=== PATIENT | female | born 1950 | race Caucasian/White ===

== ENCOUNTER 2021-09-06 17:40 | Outpatient (REF) | payer MEDICARE, SELFPAY ==
[2021-09-06 18:59] LABS: Hemoglobin A1C 9.9 % (<5.7)
[2021-09-06 19:25] LABS: ALT 26 U/L (14-59); AST 15 U/L (15-37); Albumin 4.5 g/dL (3.4-5.0); Alkaline Phosphatase 43 U/L (46-116); BUN 17 mg/dL (7-18); Bilirubin, Total 0.6 mg/dL (0.2-1.0); CREATININE 0.9 mg/dL (0.55-1.02); Calcium 9.5 mg/dL (8.5-10.1); Calculated LDL 10 mg/dL (<100); Chloride 103 mmol/L (98-107); Cholesterol 81 mg/dL (<200); Glucose 147 mg/dL (74-106); HDL Cholesterol 31 mg/dL (40-60); Potassium 4.1 mmol/L (3.5-5.1); Sodium 142 mmol/L (136-145); TSH (W/Ref FT4) 0.81 uIU/mL (0.36-3.74); Total Protein 7.2 g/dL (6.4-8.2); Triglyceride 204 mg/dL (<150); Vitamin B12 343 pg/mL (193-986)
== END 2021-09-06 17:41 | disposition home or self-care (01) ==
LOC: NCHCN 17:40
PROVIDERS: Visit Provider Nurse Practitioner Family
DX: I10 Essential (primary) hypertension (principal); E11.9 Type 2 diabetes mellitus without complications; F03.90 Unspecified dementia, unspecified severity, without behavioral disturbance, psychotic disturbance, mood disturbance, and anxiety
CPT/HCPCS: 80053; 80061; 82607; 83036; 83735; 84443

== ENCOUNTER 2021-12-07 18:39 | Outpatient (REF) | payer MEDICARE, SELFPAY ==
[2021-12-07 18:35] LABS: Hemoglobin A1C 7.6 % (<5.7)
== END 2021-12-07 18:40 | disposition home or self-care (01) ==
LOC: NCHCN 18:39
PROVIDERS: PCP Internal Medicine; Visit Provider Nurse Practitioner Family
DX: E11.9 Type 2 diabetes mellitus without complications (principal)
CPT/HCPCS: 83036

== ENCOUNTER 2022-02-20 07:59 | Outpatient (REF) | payer MEDICARE, SELFPAY ==
[2022-02-20 16:28] LABS: Hemoglobin A1C 7.5 % (<5.7)
== END 2022-02-20 08:00 ==
LOC: NCHCN 07:59
PROVIDERS: PCP Internal Medicine; Visit Provider Nurse Practitioner Family
DX: E11.9 Type 2 diabetes mellitus without complications (principal)
CPT/HCPCS: 83036

== ENCOUNTER 2022-06-16 16:12 | Outpatient (REF) | payer MEDICARE, SELFPAY ==
[2022-06-16 14:12] LABS: Hemoglobin A1C 8.7 % (<5.7)
== END 2022-06-16 16:13 | disposition home or self-care (01) ==
LOC: NCHCN 16:12
PROVIDERS: PCP Nurse Practitioner Family; Visit Provider Nurse Practitioner Family
DX: E11.9 Type 2 diabetes mellitus without complications (principal)
CPT/HCPCS: 83036

== ENCOUNTER 2022-06-20 01:44 | Outpatient (CLI) | payer MEDICARE, SELFPAY ==
--- NOTE | 2022-06-20 12:00 | DI.MAMMO_ITS ---
Exam(s) MAMMO SCREENING EXAM: MAMMO SCREENING CLINICAL HISTORY: SCREENING, Z12.31 TECHNIQUE: Bilateral full field digital CC and MLO mammographic images were obtained with 3D tomosyn thesis and utilizing computer aided detection (CAD). COMPARISON: None. FINDINGS: Masses/Architectural Distortion: There is a 4 mm well-circumscribed nodule in the posterior central a nd lower right breast. It lies near the chest wall. There is an ovoid density in the retroareolar r egion of the right breast which appears to be associated with a duct. Microcalcifications: No suspicious pleomorphic-type are seen. Skin Thickening/Nipple Retraction: None. IMPRESSION: 1. 4 mm nodule in the posterior right breast. Spot compression view is recommended for further evalu ation. Ultrasound may be indicated at that time. 2. Ovoid density in the retroareolar region of the right breast which appears to be associated with a duct. Spot compression view and a right breast ultrasound are requested for further evaluation. BI-RADS Category 0 - Assessment Incomplete: Need additional imaging evaluation Breast Density - Category B - Scattered areas of fibroglandular density Breast density category C or D implies that the patient has dense breast tissue. Dense breast tissue is very common and is not abnormal but dense breast tissue can make it harder to find cancer on a ma mmogram. Also, dense breast tissue may increase their breast cancer risk. This information about the result of the mammogram report was provided to the patient to raise their awareness. Use this report when you speak with the patient about their risks for breast cancer, which includes their family hist ory. At that time, you may recommend for more screening tests (Ultrasound or MRI) as they might be us eful based on their risk. A negative radiographic report should not delay biopsy if a dominant or clinically suspicious mass is present. Up to ten percent of cancers are not identified on mammography. A negative report may reinforce clinical impression. Adenosis and dense breasts may obscure an underlying neoplasm. False positive reports average 6 to 10%. Patient will receive a letter notifying them of these results.
== END 2022-06-20 02:04 ==
LOC: DI 01:47
PROVIDERS: PCP Nurse Practitioner Family; Visit Provider Nurse Practitioner Family
DX: Z12.31 Encounter for screening mammogram for malignant neoplasm of breast (principal)
CPT/HCPCS: 77063; 77067

== ENCOUNTER 2022-07-18 02:19 | Outpatient (CLI) | payer MEDICARE, SELFPAY ==
--- NOTE | 2022-07-18 10:59 | DI.US_ITS ---
Exam(s) MG MAMMO SCREEN CALL BACK UNI US BREAST RT COMPLETE EXAM: MAMMO SCREEN CALL BACK UNI-RIGHT AND COMPLETE RIGHT BREAST ULTRASOUND CLINICAL HISTORY: OVOID DENSITY RIGHT BREAST, ABNL MAMMO R92.8. TECHNIQUE: Unilateral spot mammographic images obtained with 3D tomosynthesisand utilizing computer aided detection (CAD). . Complete RIGHT breast Ultrasound was also performed, including all 4 quadrants, the retroareolar ameya on, and the ipsilateral axilla. COMPARISON: Prior mammograms were reviewed. This additional imaging was performed due to findings described on the recent screening mammogram of 06/20/2022. Her prior mammograms from the [facility] a have not yet been acquired for comparison. These were apparently performed over a decade ago... FINDINGS: DIAGNOSTIC MAMMOGRAM: Additional mammographic views performed todaydo not dissipate the findings.Proceeded with ultrasound. .. COMPLETE RIGHT BREAST ULTRASOUND: Ultrasound performed today reveals 2 relatively similar appearing central findings at the 6 o'clock a nd 9 o'clock positions. The 6 o'clock finding corresponds to the finding on the mammogram. It is cy stic and measures approximately 12 x 5 mm. No solid internal components. Careful real-time imaging reveals these to probably be ductal, particularly the 9 o'clock finding. There are no solid component s therein to suggest the presence of a papilloma. Scanning of the ipsilateral axilla reveals no significant adenopathy. IMPRESSION: 1. Two cystic findings as described above. The purely cystic finding at the 6 o'clock position earnest esponds to the nodule described on the mammogram. The finding at the 9 o'clock position is probably a dilated duct. No papilloma noted therein. Appropriate follow-up as discussed by myself with the patient today is repeat right breast imaging in 6 months, to include repeat right mammogram and ultrasound. The patient was informed of these findings and recommendations by myself prior to leaving the departm ent today. BI-RADS Category 3 - 6 month - Probably Benign Finding: Recommend follow-up mammography in 6 months Breast Density - Category B - Scattered areas of fibroglandular density Breast density Category C or D implies that the patient has dense breast tissue. Dense breast tissue can make it harder to find cancer on a mammogram. Dense breast tissue is also associated with an incr eased risk of breast cancer. This information about the result of the mammogram report was provided to the patient to raise their awareness. Use this report when you speak with the patient about their risks for breast cancer, which includes their family history. At that time, you may recommend additional screening tests (Ultrasoun d or MRI) as these tests may add significant information. A negative radiographic report should not delay biopsy if a dominant or clinically suspicious mass is present. Up to ten percent of cancers are not identified on mammography. A negative report may reinforce clinical impression. Adenosis and dense breasts may obscure an underlying neoplasm. False positive reports average 6 to 10%. Patient will receive a letter notifying them of these results.
== END 2022-07-18 02:39 ==
LOC: DI 02:20
PROVIDERS: PCP Nurse Practitioner Family; Visit Provider Nurse Practitioner Family
DX: Z12.31 Encounter for screening mammogram for malignant neoplasm of breast (principal); N60.01 Solitary cyst of right breast; R92.8 Other abnormal and inconclusive findings on diagnostic imaging of breast
CPT/HCPCS: 76642; 77063; 77067

== ENCOUNTER 2022-09-15 11:06 | Outpatient (REF) | payer MEDICARE, SELFPAY ==
--- OUTSIDE RECORDS SUMMARY | 2022-09-15 11:07 | XMS_ITS | Continuity of Care Document ---
Author Name Unknown Organization [facility] Address [address] [place] [id number] Phone Care Team Providers Care Assorter Laundry Name Role Phone Pitcher Dami THRASHER Unavailable Unavailable Allergies, Adverse Reactions, Alerts Substance Reaction Status Criticality Penicillins Active No Information Medications Medication Instructions Dosage Effective Dates (start - stop) Status Comments ASPIRIN EC 81MG TABLET DR 1 TAB BY MOUTH EVERY DAY - Active MELOXICAM 7.5MG TABLET 1 TAB BY MOUTH EVERY DAY 7.5 MG - Active glipizide ER 10 mg tablet, extended release 24 hr take 2 tablet by oral route every day with breakfast 20 MG - Active bubble pack Trulicity 0.75 mg/0.5 mL subcutaneous pen injector inject (0.75MG) by subcutaneous route every week 0.75 MG - Active amlodipine 2.5 mg tablet Take one tablet by oral route every day in the morning - Active atorvastatin 20 mg tablet take 1 tablet by oral route every day in the morning - Active lisinopril 10 mg tablet Take one tablet by oral route every day in the morning. - Active metformin ER 500 mg tablet,extended release 24hr take 2 tablet by oral route every day in the morning - Active donepezil 10 mg tablet take 1 tablet by oral route every day in the evening 10 MG - Active bubble pack, please cancel previous script. Jardiance 25 mg tablet take 1 tablet by oral route every day in the morning 25 MG - Active bubble pack Procedures Procedure Date Collecton Capillary Blood Spec 21 GLYCOSYLATED HEMOGLOBIN TEST Offic/outpt E&m Estab Low-mod 1 Offic/outpt E&m Estab Low-mod 1 Collecton Capillary Blood Spec 21 GLYCOSYLATED HEMOGLOBIN TEST OFFICE/OUTPATIENT VISIT, EST Collecton Capillary Blood Spec 21 GLYCOSYLATED HEMOGLOBIN TEST Collecton Capillary Blood Spec 20 GLYCOSYLATED HEMOGLOBIN TEST CCIIV4 VACC ABX FREE IM Offic/outpt E&m Estab Low-mod 0 Admin influenza virus vac Collecton Capillary Blood Spec 20 GLYCOSYLATED HEMOGLOBIN TEST OFFICE/OUTPATIENT VISIT, EST OFFICE/OUTPATIENT VISIT, EST Telemed OFFICE/OUTPATIENT VISIT, EST 992 13 Offic/outpt E&m Estab Low-mod 0 Offic/outpt E&m Estab Low-mod 0 Collecton Capillary Blood Spec 20 GLYCOSYLATED HEMOGLOBIN TEST Offic/outpt E&m Estab Low-mod 0 OFFICE/OUTPATIENT VISIT, EST Offic/outpt E&m Estab Low-mod 9 Offic/outpt E&m Estab Low-mod 9 Routine Venipuncture GLYCOSYLATED HEMOGLOBIN TEST Transferase; Alanine Amino Transferase; Aspartate Amino Calcium; Tot Complete Cbc, Automated Creatinine; Bld Electrolyte Panel Glu; Sj Syphilis Thyroid Stim Hormone VITAMIN B-12 OFFICE/OUTPATIENT VISIT, EST Collecton Capillary Blood Spec 19 OFFICE/OUTPATIENT VISIT, EST Damir-13-2019 Offic/outpt E&m New Mod-hi 45 9 Advance Directives Directive Yes / No Effective Date File Name No Information Encounters Encounter Description Practice Location Reason(s) For Visit Diagnoses Date Provider Providers Copied on Encounter [facility] , [address] [place] [address], [address] [place] [address], tel:[phone] [facility] No Information 3 Pitcher Dami. [address] [place] [address], [facility], . tel:[phone], [address] [place] [address], tel:[phone] [facility] No Information 2 Pitcher Dami. [address] [place] [address], [facility], [place]. tel:[phone], [address] [place] [address], tel:[phone] [facility] No Information 2 Pitcher Dami. [address] [place] [address], [facility], [place]. tel:[phone], [id number], tel:[phone] [facility] No Information 2 Nurse Office. [address] [place] [address], [facility], . tel:[phone], [id number], tel:[phone] [facility] No Information 2 Nurse Office. [address] [place] [address], [facility], . tel:[phone], [id number], tel:[phone] [facility] No Information 2 Shannon Houston [address] [place] [address], [id number], . tel:[phone], [address] [place] [address], tel:[phone] [facility] No Information 1 Pitcher Dami. [address] [place] [address], [facility], . tel:[phone], [address] [place] [address], tel:[phone] [facility] No Information 1 Nurse Office. [address] [place] [address], [facility], . tel:[phone] Offic/outpt E&m [address], [address] [place] [address], tel:[phone] [facility] diabetes (chief complaint)com ments (chief complaint)hyp ertension (chief complaint) Type 2 diabetes mellitus without complication, without long-term current use of insulinEssent ial hypertensionM chaim loss 1 Pitchcornell Lomax. [address] [place] [address], [facility], [place]. tel:[phone] Referring Provider: Dami Antunez, [address] [place] [address], [facility]. tel:[phone], [address] [place] [address], tel:[phone] [facility] No Information 1 Pitchcornell Lomax. [address] [place] [address], [facility], [place]. tel:[phone] Offic/outpt E&m [facility] , [address] [place] [address], [address] [place] [address], tel:[phone] [facility] diabetes (chief complaint)Com ments (chief complaint)Kne e pain (chief complaint) Type 2 diabetes mellitus without complication, without long-term current use of insulinRight knee pain, unspecified chronicity 1 Harmony Lomax. [address] [place] [address], [facility], [place]. tel:[phone] Referring Provider: Dami Antunez, [address] [place] [address], [place], [place], [facility]. tel:[phone] [facility] , [address] [place] [address], [address] [place] [address], tel:[phone] [facility] No Information 1 Carson Machado. [address] [place] [address], [address], [place]. tel:[phone] OFFICE/OUTPA TIENT VISIT, [address], [address] [place] [address], [place] tel:[phone] [facility] hypertension (chief complaint)dimitri betes (chief complaint)Com ments (chief complaint) Essential hypertensionT ype 2 diabetes mellitus without complication, without long-term current use of insulinMemory loss 1 Harmony Lomax. [address] [place] [address], [facility], [place]. tel:[phone] Referring Provider: Dami Antunez, [address] [place] [address], [facility]. tel:[phone] Offic/outpt E&m Estab Low-mod [facility] , [address] [place] [address], [address] [place] [address], [place] tel:[phone] [facility] hypertension (chief complaint)dimitri betes (chief complaint)com ments (chief complaint) Type 2 diabetes mellitus without complication, without long-term current use of insulinEssent ial hypertensionM chaim loss 0 Pitchcornell Lomax. [address] [place] [address], [facility], [place]. tel:[phone] Referring Provider: Dami Antunez, [address] [place] [address], [facility]. tel:[phone] OFFICE/OUTPA TIENT VISIT, [facility] , [address] [place] [address], [id number], [place] tel:[phone] [facility] diabetes (chief complaint)hyp ertension (chief complaint)Ear discomfort (chief complaint) Essential hypertensionT ype 2 diabetes mellitus without complication, without long-term current use of insulin 0 Pitcher Dami. [address] [place] [address], [facility], [place]. tel:[phone] Referring Provider: Dami Antunez, [address] [place] [address], [facility]. tel:[phone] OFFICE/OUTPA TIENT VISIT, [facility] , [address] [place] [address], [address] [place] [address], [place] tel:[phone] [facility] diabetes (chief complaint)Vag inal discharge/itc durga (chief complaint) Type 2 diabetes mellitus without complication, without long-term current use of insulinEssent ial hypertension 0 Pitcher Dami. [address] [place] [address], [facility], [place]. tel:[phone] Referring Provider: Dami Antunez, [address] [place] [address], [facility]. tel:[phone] [facility] , [address] [place] [address], [id number], [place] tel:[phone] [facility] Sore throat (chief complaint) Pharyngitis, unspecified etiology 0 Dejuan Malone. [address] [place] [address], [facility], [place]. tel:[phone] Referring Provider: Randi Ortega , [address] [place] [address], [id number]. tel:[phone] Offic/outpt E&m Estab Low-mod [facility] , [address] [place] [address], [id number], [place] tel:[phone] [facility] Ear pain (chief complaint) Acute diffuse otitis externa of left ear 0 Pitcher Dami. [address] [place] [address], [facility], . tel:[phone] Referring Provider: Dami Antunez, [address] [place] [address], [facility]. tel:[phone] [facility] , [address] [place] [address], [address] [place] [address], tel:[phone] Depression, unspecified depression type Mar- 0 Pitcher Dami. [address] [place] [address], [facility], [place]. tel:[phone] Offic/outpt E&m [address], [address] [place] [address], tel:[phone] [facility] Eye problems (chief complaint)com ments (chief complaint)swe lling (chief complaint) Contusion of scalp, face, and neck, excluding eyes 0 Pitcher Dami. [address] [place] [address], [facility], [place]. tel:[phone] Referring Provider: Dami Antunez, [address] [place] [address], [facility]. tel:[phone] Offic/outpt E&m [facility] , [address] [place] [address], [address] [place] [address], tel:[phone] [facility] diabetes (chief complaint)Familia h (chief complaint) Type 2 diabetes mellitus without complication, without long-term current use of insulinDepres manjula, unspecified depression type 0 Pitcher Dami. [address] [place] [address], [facility], [place]. tel:[phone] Referring Provider: Daim Antunez, [address] [place] [address], [facility]. tel:[phone] OFFICE/OUTPA TIENT VISIT, [facility] , [address] [place] [address], [id number], [place] tel:[phone] [facility] diabetes (chief complaint)Com ments (chief complaint) Body mass index (BMI) 24.0-24.9, adultType 2 diabetes mellitus without complication, without long-term current use of insulinMemory loss 0 Pitcher Dami. [address] [place] [address], [facility], [place]. tel:[phone] Referring Provider: Dami Antunez, [address] [place] [address], [facility]. tel:[phone] Offic/outpt E&m [facility] , [address] [place] [address], [address] [place] [address], tel:[phone] [facility] Cold symptoms (chief complaint) Acute frontal sinusitis, recurrence not specified 9 Pitcher Dami. [address], [facility], [place]. tel:[phone] Referring Provider: Dami Antunez, [address] [place] [address], [facility]. tel:[phone] [facility] , [address] [place] [address], [id number], tel:[phone] [facility] Memory loss 9 Pitcher Dami. [address] [place] [address], [facility], [place]. tel:[phone] Offic/outpt E&m [facility] , [address] [place] [address], [id number], [place] tel:[phone] [facility] Ear discomfort (chief complaint) Right acute otitis media 9 Fu Damir. [address], [place], [place], [facility], [place]. tel:[phone] OFFICE/OUTPA TIENT VISIT, [facility] , [address] [place] [address], [address] [place] [address], tel:[phone] [facility] Follow Up of Memory Loss (chief complaint)hyp ertension (chief complaint)dimitri betes (chief complaint) Memory lossEssential hypertensionT ype 2 diabetes mellitus without complication, without long-term current use of insulin 9 Pitcher Dami. [address] [place] [address], [facility], . tel:[phone] Referring Provider: Dami Antunez, [address] [place] [address], [place], [place], [facility]. tel:[phone] [facility] , [address] [place] [address], [address] [place] [address], tel:[phone] [facility] Memory loss Jul- 9 Pitcher Dami. [address] [place] [address], [facility], . tel:[phone] OFFICE/OUTPA TIENT VISIT, [facility] , [address] [place] [address], [address] [place] [address], tel:[phone] [facility] Memory loss (chief complaint)hyp ertension (chief complaint)dimitri betes (chief complaint) Memory lossEssential hypertensionT ype 2 diabetes mellitus without complication, without long-term current use of insulinStress Pitcher Dami. [address] [place] [address], [facility], [place]. tel:[phone] Referring Provider: Dami Antunez, [address] [place] [address], [facility]. tel:[phone] Offic/outpt E&m [facility], [address] [place] [address], tel:[phone] [facility] Establish Care (chief complaint)dep ression (chief complaint) Essential hypertensionT ype 2 diabetes mellitus without complication, without long-term current use of insulinStress 9 Pitcher Dami. [address] [place] [address], [facility], . tel:[phone] Referring Provider: Dami Antunez, [address] [address], [place], [address]. tel:[phone] Family History Family Member Type Diagnosis Age At Onset No Information Immunizations Vaccine Date Status Comments Influenza administered Note: [facility] ; Source: Other Provider Pfizer Covid-19 administered Note: [facility] ; Source: Other Provider Pfizer Covid-19 administered Note: Per [facility] ; Source: Other Registry Pfizer Covid-19 administered Note: [facility] ; Source: Other Registry Influenza, injectable, quadrivalent with preservative, MDCK, 0.5 mL dosage, Flucelvax Quad administered Source: New Immuniza tion Record Pneumococcal conjugate PCV 13 administere d Note: Per [place] [facility] ; Source: Other Registry Pneumococcal polysaccharide PPV23 administered Note: Per [place] [facility] ; Source: Other Registry Tdap administered Note: Per [facility] ; Source: Other Registry Payers Payer name Insurance type Covered republican ID Authoriza tion(s) Medicare [place] Advantage Plan CI [id number] Medicare [place] Advantage Plan CI [id number] Social History Type Description Quantity Date Captured Comments Sex Female Smoking Status No Information Chief Complaint And Reason For Visit No Information Plan Of Treatment Date Type Action Status Goal ASCVD 10 year risk. Due on A due Goal INFLUENZA. Due on 2 due Goal Foot exam. Due on 2 due Goal FOBT. Due on due Goal HEPATITIS C AB TEST. Due on due Goal Mammogram. Due on 2 due Goal Colonoscopy. Due on 022 due Goal PCV13 due Goal Zoster vaccine (). Due on due Goal Hemoglobin A1C. Due on due Goal BMI counseling d ocumented in Health Promotion Plan. Due on due Goal Dietitian. Due on 2 due Goal Urine microalbumin. Due on A due Goal Zoster vaccine (). Due on due Goal Annual PE. Due on due Goal DEXA Scan. Due on due Goal Thyroid Stim Hormone due Goal Depression screening. Due on due Goal Dilated eye exam. Due on Sep due Goal Calcium; Tot due Goal Electrocardiogram, complete (ECG). Due on due Goal Electrolyte Panel. Due on due Goal CBC due Goal Creatinine. Due on 20 due Goal HEPATITIS C AB TEST. Due on due Goal BMI counseling d ocumented in Health Promotion Plan. Due on due Goal Dietitian. Due on 2 due Goal PCV13 due Goal Colonoscopy. Due on 022 due Goal Calcium; Tot due Goal INFLUENZA. Due on 2 due Goal Zoster vaccine (). Due on due Goal Electrolyte Panel. Due on due Goal FOBT. Due on due Goal DEXA Scan. Due on 2 due Goal Annual PE. Due on due Goal CBC due Goal Zoster vaccine (). Due on due Goal Creatinine. Due on due Goal Depression screening. Due on due Goal Urine microalbumin. Due on due Goal Thyroid Stim Hormone due Goal Mammogram. Due on due Goal Hemoglobin A1C. Due on due Goal Electrocardiogram, complete (ECG). Due on due Goal Foot exam. Due on due Goal ASCVD 10 year risk. Due on due Goal Dilated eye exam. Due on June due Goal Lipid panel. Due on due Goal Lipid panel. Due on due Goal Lipid Panel. Due on due Goal Diabetes Screening. Due on A due Goal Electrocardiogram, complete (ECG). Due on due Goal Urine microalbumin. Due on A due Goal Thyroid Stim Hormone due Goal FOBT. Due on due Goal Depression screening. Due on due Goal DEXA Scan. Due on due Goal Zoster vaccine (). Due on due Goal BMI counseling d ocumented in Health Promotion Plan. Due on due Goal Calcium; Tot due Goal Zoster vaccine (2nd). Due on due Goal Dilated eye exam. Due on May due Goal Mammogram. Due on due Goal Hemoglobin A1C. Due on due Goal Annual PE. Due on due Goal PCV13 due Goal Colonoscopy. Due on due Goal HEPATITIS C AB TEST. Due on due Goal Foot exam. Due on due Goal INFLUENZA. Due on due Goal Dietitian. Due on due Goal Electrolyte Panel. Due on due Goal CBC due Goal Creatinine. Due on due Goal Lipid Panel. Due on due Goal Lipid panel. Due on due Goal Lipid panel. Due on due Goal PCV13 due Goal Zoster vaccine (). Due on due Goal Electrolyte Panel. Due on due Goal Foot exam. Due on due Goal Thyroid Stim Hormone due Goal HEPATITIS C AB TEST. Due on due Goal Zoster vaccine (1st). Due on due Goal Colonoscopy. Due on due Goal Hemoglobin A1C. Due on due Goal Dietitian. Due on due Goal Annual PE. Due on due Goal Electrocardiogram, complete (ECG). Due on due Goal INFLUENZA. Due on due Goal Calcium; Tot due Goal FOBT. Due on due Goal Urine microalbumin. Due on due Goal DEXA Scan. Due on due Goal Dilated eye exam. Due on Apr due Goal BMI counseling d ocumented in Health Promotion Plan. Due on due Goal Depression screening. Due on due Goal Mammogram. Due on due Goal CBC due Goal Creatinine. Due on due Goal Foot exam. Due on due Goal Annual PE. Due on due Goal DEXA Scan. Due on due Goal Zoster vaccine (2nd). Due on due Goal Lipid Panel. Due on due Goal FOBT. Due on due Goal Lipid panel. Due on due Goal Lipid panel. Due on due Goal Electrocardiogram, complete (ECG). Due on due Goal Dilated eye exam. Due on Sep due Goal BMI counseling d ocumented in Health Promotion Plan. Due on due Goal HEPATITIS C AB TEST. Due on due Goal Electrolyte Panel. Due on due Goal Zoster vaccine (1st). Due on due Goal Diabetes Screening. Due on due Goal Mammogram. Due on due Goal PCV13 due Goal Thyroid Stim Hormone due Goal CBC due Goal Creatinine. Due on due Goal Calcium; Tot due Goal Dietitian. Due on due Goal Urine microalbumin. Due on due Goal Colonoscopy. Due on due Goal INFLUENZA. Due on due Goal Depression screening. Due on due Goal FOBT. Due on due Goal Creatinine. Due on due Goal Annual PE. Due on due Goal Zoster vaccine (). Due on due Goal Foot exam. Due on due Goal Colonoscopy. Due on due Goal HEPATITIS C AB TEST. Due on due Goal Dilated eye exam. Due on June due Goal DEXA Scan. Due on due Goal Lipid Panel. Due on due Goal Electrolyte Panel. Due on due Goal Electrocardiogram, complete (ECG). Due on due Goal Depression screening. Due on due Goal Dietitian. Due on due Goal BMI counseling d ocumented in Health Promotion Plan. Due on due Goal Urine microalbumin. Due on due Goal Mammogram. Due on due Goal Thyroid Stim Hormone due Goal Lipid panel. Due on due Goal Lipid panel. Due on due Goal Hemoglobin A1C. Due on due Goal CBC due Goal Calcium; Tot due Goal FOBT. Due on due Goal Electrolyte Panel. Due on due Goal Dilated eye exam. Due on June due Goal Depression screening. Due on due Goal Urine microalbumin. Due on due Goal Lipid Panel. Due on due Goal Diabetes Screening. Due on due Goal Hemoglobin A1C. Due on due Goal Lipid panel. Due on due Goal Zoster vaccine (). Due on due Goal Calcium; Tot due Goal BMI counseling d ocumented in Health Promotion Plan. Due on due Goal Annual PE. Due on due Goal Colonoscopy. Due on due Goal HEPATITIS C AB TEST. Due on due Goal Creatinine. Due on due Goal Lipid panel. Due on due Goal CBC due Goal Dietitian. Due on due Goal DEXA Scan. Due on due Goal Foot exam. Due on due Goal Thyroid Stim Hormone due Goal Mammogram. Due on due Goal Electrocardiogram, complete (ECG). Due on due Goal Urine microalbumin. Due on due Goal HEPATITIS C AB TEST. Due on due Goal Diabetes Screening. Due on due Goal DEXA Scan. Due on due Goal Annual PE. Due on due Goal BMI counseling d ocumented in Health Promotion Plan. Due on due Goal Lipid panel. Due on due Goal Lipid panel. Due on due Goal Thyroid Stim Hormone due Goal Dilated eye exam. Due on Apr due Goal Calcium; Tot due Goal Zoster vaccine (). Due on due Goal Foot exam. Due on due Goal FOBT. Due on due Goal Dietitian. Due on due Goal Electrolyte Panel. Due on due Goal Electrocardiogram, complete (ECG). Due on due Goal Lipid Panel. Due on due Goal CBC due Goal Depression screening. Due on due Goal Creatinine. Due on due Goal Mammogram. Due on 1 due Goal Colonoscopy. Due on due Goal Mammogram. Due on 0 due Goal BMI counseling d ocumented in Health Promotion Plan. Due on due Goal Urinalysis. Due on due Goal Lipid panel. Due on due Goal HIV-1 AG W/HIV-1 & HIV-2 AB. Due on due Goal Electrocardiogram, complete (ECG). Due on due Goal Calcium; Tot due Goal DEXA Scan. Due on 0 due Goal Annual PE. Due on 0 due Goal HEPATITIS C AB TEST. Due on due Goal Lipid panel. Due on due Goal Hemoglobin A1C. Due on due Goal Electrolyte Panel. Due on due Goal Creatinine. Due on due Goal Lipid Panel. Due on due Goal Colonoscopy. Due on due Goal Colorectal cance r screen, stool DNA QuARTS with hemoglobin TSERING. Due on due Goal CBC due Goal Dietitian. Due on 0 due Goal Depression screening. Due on due Goal Thyroid Stim Hormone due Goal Foot exam. Due on 0 due Goal FOBT. Due on due Goal Urine microalbumin. Due on due Goal Dilated eye exam. Due on Dec due Goal Lipid panel. Due on due Goal Urinalysis. Due on due Goal Colorectal cance r screen, stool DNA QuARTS with hemoglobin TSERING. Due on due Goal Lipid Panel. Due on due Goal Mammogram. Due on 0 due Goal Lipid panel. Due on due Goal BMI counseling d ocumented in Health Promotion Plan. Due on due Goal CBC due Goal Urine microalbumin. Due on due Goal Colonoscopy. Due on due Goal Electrocardiogram, complete (ECG). Due on due Goal HEPATITIS C AB TEST. Due on due Goal Dilated eye exam. Due on Sep due Goal HIV-1 AG W/HIV-1 & HIV-2 AB. Due on due Goal Depression screening. Due on due Goal Hemoglobin A1C. Due on due Goal Dietitian. Due on 0 due Goal Thyroid Stim Hormone due Goal FOBT. Due on due Goal Electrolyte Panel. Due on due Goal Annual PE. Due on 0 due Goal Calcium; Tot due Goal Foot exam. Due on 0 due Goal Creatinine. Due on due Goal DEXA Scan. Due on 0 due Goal HIV-1 AG W/HIV-1 & HIV-2 AB. Due on due Goal BMI counseling d ocumented in Health Promotion Plan. Due on due Goal Mammogram. Due on 0 due Goal Dietitian. Due on 0 due Goal DEXA Scan. Due on 0 due Goal Hemoglobin A1C. Due on due Goal Electrolyte Panel. Due on due Goal CBC due Goal Thyroid Stim Hormone due Goal Diabetes Screening. Due on due Goal Annual PE. Due on 0 due Goal Urinalysis. Due on due Goal FOBT. Due on due Goal Lipid panel. Due on due Goal Foot exam. Due on 0 due Goal Electrocardiogram, complete (ECG). Due on due Goal HEPATITIS C AB TEST. Due on due Goal Urine microalbumin. Due on due Goal Colonoscopy. Due on due Goal Calcium; Tot due Goal Depression screening. Due on due Goal Colorectal cance r screen, stool DNA QuARTS with hemoglobin TSERING. Due on due Goal Lipid panel. Due on due Goal Creatinine. Due on due Goal Lipid Panel. Due on due Goal Dilated eye exam. Due on Jul due Goal Annual PE. Due on 0 due Goal Dilated eye exam. Due on June due Goal HEPATITIS C AB TEST. Due on due Goal Dietitian. Due on 0 due Goal Urinalysis. Due on due Goal Foot exam. Due on 0 due Goal Lipid panel. Due on due Goal Colorectal cance r screen, stool DNA QuARTS with hemoglobin TSERING. Due on due Goal FOBT. Due on due Goal BMI counseling d ocumented in Health Promotion Plan. Due on due Goal CBC due Goal Diabetes Screening. Due on due Goal Depression screening. Due on due Goal Colonoscopy. Due on due Goal Mammogram. Due on 0 due Goal DEXA Scan. Due on 0 due Goal Lipid panel. Due on due Goal Urine microalbumin. Due on due Goal Lipid Panel. Due on due Goal HIV-1 AG W/HIV-1 & HIV-2 AB. Due on due Goal Creatinine. Due on due Goal Electrocardiogram, complete (ECG). Due on due Goal Electrolyte Panel. Due on due Goal Hemoglobin A1C. Due on due Goal Calcium; Tot due Goal Thyroid Stim Hormone due Goal BMI counseling d ocumented in Health Promotion Plan. Due on due Goal Colorectal cance r screen, stool DNA QuARTS with hemoglobin TSERING. Due on due Goal Electrolyte Panel. Due on due Goal Thyroid Stim Hormone due Goal Colonoscopy. Due on due Goal FOBT. Due on due Goal Foot exam. Due on 0 due Goal Annual PE. Due on 0 due Goal CBC due Goal Dietitian. Due on 0 due Goal Diabetes Screening. Due on due Goal Hemoglobin A1C. Due on due Goal DEXA Scan. Due on 0 due Goal HEPATITIS C AB TEST. Due on due Goal Mammogram. Due on 0 due Goal Lipid panel. Due on due Goal Dilated eye exam. Due on Apr due Goal Lipid panel. Due on due Goal Electrocardiogram, complete (ECG). Due on due Goal Depression screening. Due on due Goal Calcium; Tot due Goal Lipid Panel. Due on due Goal HIV-1 AG W/HIV-1 & HIV-2 AB. Due on due Goal Urinalysis. Due on due Goal Urine microalbumin. Due on due Goal Creatinine. Due on due Goal Lipid panel. Due on due Goal Lipid panel. Due on due Goal Lipid Panel. Due on due Goal Colorectal cance r screen, stool DNA QuARTS with hemoglobin TSERING. Due on due Goal Urinalysis. Due on due Goal Mammogram. Due on 0 due Goal Hemoglobin A1C. Due on due Goal HEPATITIS C AB TEST. Due on due Goal Thyroid Stim Hormone due Goal FOBT. Due on due Goal Electrolyte Panel. Due on due Goal Dietitian. Due on 0 due Goal Urine microalbumin. Due on due Goal CBC due Goal Depression screening. Due on due Goal DEXA Scan. Due on [address] low dose, lung cancer scr een. Due on due Goal HIV-1 AG W/HIV-1 & HIV-2 AB. Due on due Goal Colonoscopy. Due on 020 due Goal Dilated eye exam. Due on Mar due Goal Creatinine. Due on 20 due Goal Diabetes Screening. Due on due Goal BMI counseling d ocumented in Health Promotion Plan. Due on due Goal Annual PE. Due on 0 due Goal Calcium; Tot due Goal Electrocardiogram, complete (ECG). Due on due Goal Foot exam. Due on 0 due Goal Foot exam. Due on 0 due Goal Colorectal cance r screen, stool DNA QuARTS with hemoglobin TSERING. Due on due Goal BMI counseling d ocumented in Health Promotion Plan. Due on due Goal Creatinine. Due on due Goal CT low dose, lung cancer scr een. Due on due Goal Lipid panel. Due on due Goal CBC due Goal Dietitian. Due on 0 due Goal Dilated eye exam. Due on Mar due Goal DEXA Scan. Due on 0 due Goal Urine microalbumin. Due on due Goal Urinalysis. Due on due Goal HEPATITIS C AB TEST. Due on due Goal HIV-1 AG W/HIV-1 & HIV-2 AB. Due on due Goal FOBT. Due on due Goal Mammogram. Due on 0 due Goal Hemoglobin A1C. Due on due Goal Depression screening. Due on due Goal Electrocardiogram, complete (ECG). Due on due Goal Colonoscopy. Due on due Goal Annual PE. Due on 0 due Goal Calcium; Tot due Goal Electrolyte Panel. Due on due Goal Lipid Panel. Due on due Goal Thyroid Stim Hormone due Goal Diabetes Screening. Due on due Goal Lipid panel. Due on due Goal FOBT. Due on due Goal DEXA Scan. Due on 0 due Goal CBC due Goal Depression screening. Due on due Goal HEPATITIS C AB TEST. Due on due Goal Urinalysis. Due on due Goal CT low dose, lung cancer scr een. Due on due Goal Colorectal cance r screen, stool DNA QuARTS with hemoglobin TSERING. Due on due Goal Calcium; Tot due Goal Electrocardiogram, complete (ECG). Due on due Goal Electrolyte Panel. Due on due Goal Annual PE. Due on 0 due Goal Diabetes Screening. Due on due Goal BMI counseling d ocumented in Health Promotion Plan. Due on due Goal Mammogram. Due on 0 due Goal Lipid panel. Due on due Goal Colonoscopy. Due on due Goal HIV-1 AG W/HIV-1 & HIV-2 AB. Due on due Goal Creatinine. Due on due Goal Lipid panel. Due on due Goal Thyroid Stim Hormone due Goal Dietitian. Due on 0 due Goal Urine microalbumin. Due on due Goal Hemoglobin A1C. Due on due Goal Foot exam. Due on 0 due Goal Dilated eye exam. Due on Mar due Goal Lipid Panel. Due on due Goal Urinalysis. Due on due Goal Colorectal cance r screen, stool DNA QuARTS with hemoglobin TSERING. Due on due Goal Mammogram. Due on 0 due Goal Lipid panel. Due on due Goal Lipid Panel. Due on due Goal Lipid panel. Due on due Goal Diabetes Screening. Due on due Goal Thyroid Stim Hormone due Goal Foot exam. Due on 0 due Goal HIV-1 AG W/HIV-1 & HIV-2 AB. Due on due Goal Urine microalbumin. Due on due Goal Calcium; Tot due Goal CBC due Goal DEXA Scan. Due on 0 due Goal BMI counseling d ocumented in Health Promotion Plan. Due on due Goal Electrolyte Panel. Due on due Goal FOBT. Due on due Goal Depression screening. Due on due Goal Electrocardiogram, complete (ECG). Due on due Goal Creatinine. Due on due Goal Colonoscopy. Due on due Goal Dilated eye exam. Due on Mar due Goal CT low dose, lung cancer scr een. Due on due Goal Annual PE. Due on 0 due Goal HEPATITIS C AB TEST. Due on due Goal Dietitian. Due on 0 due Goal Tobacco cessation counseling completed Goal Dietary management education , guidance, and counseling completed Goal Dietitian. Due on 9 due Goal Electrocardiogram, complete (ECG). Due on due Goal Lipid panel. Due on due Goal Colorectal cance r screen, stool DNA QuARTS with hemoglobin TSERING. Due on due Goal FOBT. Due on due Goal Thyroid Stim Hormone due Goal DEXA Scan. Due on 9 due Goal Creatinine. Due on 20 due Goal Lipid Panel. Due on due Goal HIV-1 AG W/HIV-1 & HIV-2 AB. Due on due Goal HEPATITIS C AB TEST. Due on due Goal Foot exam. Due on 9 due Goal Lipid panel. Due on due Goal Depression screening. Due on due Goal CT low dose, lung cancer scr een. Due on due Goal Urine microalbumin. Due on due Goal Dilated eye exam. Due on Jan due Goal Mammogram. Due on 9 due Goal CBC due Goal Calcium; Tot due Goal Urinalysis. Due on 19 due Goal Diabetes Screening. Due on due Goal Annual PE. Due on 9 due Goal Colonoscopy. Due on due Goal Electrolyte Panel. Due on due Goal Mammogram. Due on due Goal Lipid panel. Due on due Goal Lipid Panel. Due on due Goal Urinalysis. Due on due Goal Lipid panel. Due on due Goal Colorectal cance r screen, stool DNA QuARTS with hemoglobin TSERING. Due on due Goal Depression screening. Due on due Goal Annual PE. Due on 9 due Goal HIV-1 AG W/HIV-1 & HIV-2 AB. Due on due Goal Electrocardiogram, complete (ECG). Due on due Goal Colonoscopy. Due on due Goal Electrolyte Panel. Due on due Goal FOBT. Due on due Goal DEXA Scan. Due on 9 due Goal Urine microalbumin. Due on due Goal Diabetes Screening. Due on due Goal CBC due Goal CT low dose, lung cancer scr een. Due on due Goal Creatinine. Due on 20 due Goal Calcium; Tot due Goal Foot exam. Due on 9 due Goal HEPATITIS C AB TEST. Due on due Goal Dietitian. Due on 9 due Goal Dilated eye exam. Due on Dec due Goal Thyroid Stim Hormone due Referral Ordered: - Therapy -*[facility] Behavioral Health (related to Depression, unspecified depression type) ordered Referral Referred To: - Therapy Ordered: Referrals: *[facility] Behavioral Health. - Therapy. Location: [facility]. Evaluate and treat ordered Referral Ordered: CT HEAD W/O DYE ordered Referral Ordered: [facility] -Occupational Therapy (related to Memory loss) ordered Referral Ordered: [facility] Neurology Memory Clinic -Neurology (related to Memory loss) ordered Referral Referred To: [facility] Ordered: Referrals: Occupational Therapy. [facility]. Evaluate and treat ordered Referral Referred To: [facility] - Neurology Memory Clinic [facility], Medical Office [place], [address] Floor
[address] [place], [address] [phone] Ordered: Referrals: Neurology. [facility] - Neurology Memory Clinic. Evaluate and treat ordered History Of Present Illness Encounter Date Complaint History Of Prese nt Illness comments DM/HTNImms: Vargas schilling Labs: 2019 A1C: 07/02 9.1% AIC today 8.9%LATONYA: Due Foot Exam: Duept does not check BS at home - takes medication her daughter gives her. diabetes The problem is i mproving. Risk factors include: over age [age] years old. Patient is compliant with using medication. Managing with: Oral medications. Associated symptoms include: dysesthesias - numbness and rash/necrobiosis. Pertinent negatives include blurred vision, burning of extremities, chest pain, constant hunger, dental disease, diarrhea, dyspnea, foot ulcers, frequent infections, urinary frequency, heartburn, hypoglycemic episodes, increased fatigue, nocturia, polydipsia, slow healing wounds / sores, weight gain and weight loss. hypertension Comorbid conditi ons include diabetes mellitus. It is currently stable. Risk factors include age over age 60. Pertinent negatives include chest pain, claudication, confusion, diaphoresis, dyspnea, epistaxis, fatigue, headache, hematuria, irregular heartbeat/palpitations, nausea, tinnitus, transient weakness, tremor, visual disturbances and vomiting. Knee pain Location: knee. Associated symptoms include decreased mobility, difficulty initiating sleep, joint tenderness and nocturnal awakening. Pertinent negatives include locking, numbness and tingling in the legs. Additional information: Pt reports when she was 17 she had injury to knee, (muscle and vascular spasms), no injuries to knee since then. However, pain has returned. Using cane to amb, not taking any meds. Pt having some swelling. Does not want any intervention. No heat or ice or elevation. Comments DMImms: Shingles Labs: 2018 A1C: 05/04 10.5% Urine Micro: DueFoot Exam: Due diabetes The problem is i mproving. Risk factors include: over age [age] years old. Patient is compliant with using medication. Managing with: Oral medications. Associated symptoms include: dysesthesias - numbness. Pertinent negatives include blurred vision, chest pain, diarrhea and dyspnea. Additional information: Pt doing Trulicity injections in the upper thigh, Daughter does injections. Pt reports she is doing well overall. Pt does not test sugars. Pt reports diet is good and trying to cut down on sweet.. diabetes Risk factors inc lude: over age [age] years old. Managing with: Oral medications. Pertinent negatives include chest pain, dyspnea and foot ulcers. Additional information: Pt reports no recent changes to diet or exercise. No concerns today. Daughter Tree states Pt is taking medications as prescribed.. hypertension Comorbid conditi ons include diabetes mellitus. It is currently stable. Risk factors include age over age 60. Pertinent negatives include chest pain, claudication, confusion, diaphoresis, dyspnea, epistaxis, fatigue, headache, hematuria, irregular heartbeat/palpitations, nausea, tinnitus, transient weakness, tremor, visual disturbances and vomiting. Additional information: Pt does not check BP at home. Comments HTN/DM Imms: Pne umo, Tdap, Shingles Labs: 09/03/18 A1C: 01/02/20 9.4% Foot Exam: DUEUrine Micro: DUE comments imms: Flu, PCV-1 3, Tdap, Shingleslabs: 10/16/2019Last A1C: 12.3 on 10/16/2019Urine Micro: DueFoot Exam: DueCare Guidelines:PElabsUrine MicroMammoFoot ExamDEXA hypertension Comorbid conditi ons include diabetes mellitus. It is currently improving. Risk factors include age over age 60. The hypertension is exacerbated by nothing. There are no associated symptoms. Pertinent negatives include chest pain, claudication, confusion, diaphoresis, dyspnea, epistaxis, fatigue, headache, hematuria, irregular heartbeat/palpitations, nausea, tinnitus, transient weakness, tremor, visual disturbances and vomiting. Additional information: Pt denies checking BP at home. diabetes The problem is i mproving. Risk factors include: over age [age] years old. Other compliance information: med compliance. She Has been managed with oral medications. Pertinent negatives include blurred vision, chest pain, dyspnea and hypoglycemic episodes. Additional information: Pt denies checking BS at home.. Ear discomfort Onset: 2 weeks a go. The patient states the ear discomfort is in the right ear. Associated symptoms include redness/swelling outer ear. Pertinent negatives include dizziness, drainage (clear), drainage (purulent) and nausea. Additional information: c/o red, crusty and swollen area on outside of right ear following use of cipro drops 2 wks ago after earache which has resolved. Inner ear feels itchy. States outside of ear not particularly painful. hypertension Additional infor mation: Not checking BP at home. diabetes Risk factors inc lude: over age [age] years old. She Has been managed with oral medications. Additional information: A1c was 11.9 04/08/19 and not checking bs at home. daughter reports poor med compliance even with weekly set up may mis 2-3 days a week. Vaginal discharge/itching Her sy mptoms began 5 Days ago. Presently the patient is experiencing vaginal itching and vaginal discharge. Her symptoms are not aggravated by new soap detergent. Her symptoms are associated with vaginal burning and dysuria but she denies fever. Additional information: c/o burning, pain, discharge as of 5 days ago, using Monistat for the past 3 days. Some burning with urination. diabetes The problem is s table. Risk factors include: over age [age] years old. Patient is compliant with using medication, follow-up, and using education materials. She Has been managed with oral medications. Additional information: A1c was 11.9 04/08/19 and not checking bs at home.. Sore throat Onset: 1 Day. As sociated symptoms include chills/rigors, fatigue and nasal congestion. Pertinent negatives include cough, dyspnea, fever, headache, postnasal drainage or wheezing. Additional information: pt states that she's been feeling sick since this morning. temp is 97.7. Kept repeating that her muscles hurt. feels like she's going to throw up but hasn't. Ear pain Onset: 1 week ag o. The patient states the ear pain is in the right ear. It occurs constantly. The problem is with no change. Denies aggravating factors. Denies relieving factors. Associated symptoms include congestion (nasal) and ear pressure. Pertinent negatives include bleeding from ear(s), cough, dizziness, ear popping, fever, nausea and ringing in ears. Additional information: Pt experiencing R ear pain with no drainage. Pt is experiencing a sore throat to accompany the ear ache. Not taking anything OTC for the discomforts. comments Pt slipped on ic e and fell and hit her eye on the ground on 04/09/19. pt didn't lose consciousness. not taking any medications for the pain, no ice, no heat. pt was looking at a crystal when she fell. swelling Pt fell on ice a nd is experiencing swelling in her rt middle finger.. The swelling is aggravated by movement. Eye problems Associated sympt oms include right eye pain, red/purple color around eye and tearing. Pertinent negatives include blurred vision, cough, ear pain, fever, headache, itching, nasal congestion or rhinorrhea. Additional information: Pt slipped on ice and fell and hit her eye on the ground on 04/09/19. pt didn't lose consciousness. Rash The patient pres ents for Rash. The patient denies aggravating factors such as clothing, lotions and sun exposure. Associated symptoms include painful rash. Pertinent negatives include bleeding, cracking, crusting, dry skin, pruritus and scaling. Additional information: Pt reports reddened splotchy areas on bilateral legs and abdomen are spreading and more red. Pt reports it is tender and painful at times. Pt states the rash is from DM. Pt not applying any topicals at home. diabetes Risk factors inc lude: over age [age] years old. Patient did not use medication, return for a follow-up, or use education materials. Other compliance information: has been poor related to cognition . better . with Tree currently for the winter. She Has been managed with oral medications. Pertinent negatives include blurred vision, diarrhea, dyspnea, foot ulcers and urinary frequency. Additional information: Per PC w/Tree and Pt is taking all of her medications. Per nursing refilled today as needed. Pt states she is doing well other than spreading rash.. diabetes She Has been man aged with oral medications. Pertinent negatives include blurred vision, dyspnea, urinary frequency and increased fatigue. Additional information: Pt reports elevated A1C at [facility], looking to discuss f/u plan. Concerns of memory loss and following u pat [facility] memory clinic. Pt's house sells on Sunday. Stressed/Depressed per daughter. Meals on wheels.. Comments (comments) very poor co mpliance/ miminal suppervion. daughter helps with meds . frequently not takehome selling/ frustrated with situation . [facility] and A1C 11.5%donepezil: 5 mg to be taken once daily for 30 days, followed by a dose increase to 10 mg, thereafter. (Per Memory Clinic) Cold symptoms Onset: 2 days ag o. The patient describes the cough as dry and non-productive. Associated symptoms include cough, fatigue, nasal congestion, pleuritic pain and sinus pressure. Pertinent negatives include chills, dyspnea, dyspnea on exertion, hoarseness, night sweats, rhinorrhea, sore throat and wheezing. The patient does not have a history of allergies or asthma. Additional information: Call daughter about any refills. No sick contacts. States has Hx of sinusitis for the past 60 years. States any mucus that comes out is green. Feels swollen and stuffed in facial sinus cavities. Ear discomfort (comments) denies nasal or dental symptoms. Ear discomfort Onset: 1 week ag o. The patient states the ear discomfort is in the right ear. The problem is worse. Associated symptoms include dizziness and mastoid bone tenderness. Pertinent negatives include cough, drainage (purulent), fever and hearing deficit. Additional information: c/o left ear pain for 1 week, hurts to chew as of today, right jaw is sore, some neck stiffness. Denies drainage, hearing loss, fevers. Not taking any pain relievers and but takes Norflex prn. diabetes The problem is s table. Patient is compliant with using medication, follow-up, and using education materials. She Has been managed with oral medications. Pertinent negatives include blurred vision, burning of extremities, chest pain, constant hunger, dental disease, diarrhea, dysesthesias, dyspnea, foot ulcers, frequent infections, urinary frequency, heartburn, hypoglycemic episodes, increased fatigue, nocturia, polydipsia, slow healing wounds / sores, weight gain and weight loss. hypertension It is currently stable. Pertinent negatives include chest pain, claudication, confusion, diaphoresis, dyspnea, epistaxis, fatigue, headache, hematuria, irregular heartbeat/palpitations, nausea, tinnitus, transient weakness, tremor, visual disturbances and vomiting. She does not have barriers to taking medication. The patient has appropriate response to medication. The patient understands medication. Follow Up of Memory Loss Additio nal information: Pt reports she is following up on visit from 08/01. Pt needs lab work performed for a Memory Center visit at [facility] 03/04.Pt reports no concerns w/HTN or DM. No changes to bowels, bladder and appetite. No SOB or chest pain. Memory loss Associated sympt oms include sleep disturbances. Pertinent negatives include agitation, confusion, dizziness, fever, headache, neck stiffness, speech difficulty and visual disturbances. 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 Concerns about license being taken and related to memory loss. Daughter has concerns about memory and is requesting MP's opinion on Pt's mental status. hypertension It is currently stable. Associated symptoms include dyspnea. Pertinent negatives include chest pain, claudication, confusion, diaphoresis, epistaxis, fatigue, headache and visual disturbances. She finds there are barriers to taking medication,including cognition. The patient has appropriate response to medication. The patient has questions about medication diabetes The problem is s table. Patient is compliant with using medication. She Has been managed with oral medications. Associated symptoms include: dyspnea. Pertinent negatives include chest pain, diarrhea, weight gain and weight loss. Additional information: friend set up meds. depression The patient pres ents with anxious/fearful thoughts, compulsive thoughts, difficulty concentrating, difficulty falling asleep, difficulty staying asleep and excessive worry but denies thoughts of or suicide. Additional information: Pt reports she is feeling of depression and stress due to daughter and boyfriend are causing stress trying to take her property. Pt reports she has not had good experiences in past w/counseling. Pt reports being treated w/medications in the past and that did help the anxious thoughts. Establish Care New patient pres ents to establish care. Previously [facility] Previous Records signed? Signed Release today in office. 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 [facility] high BP. here in follow up. not sure what im doing am i alre=right to go home .denies alcohol. denies drugs. denies self harm or harm to others Instructions Date Instruction Additional Infor trent observe Related to Memor y loss continue same4m recheck Related to Essential hypertension current Rxreassess i n 4 mdose adjust if necessary Related to Type 2 diabetes mellitus without complication, without long-term current use of insulin disusses meds discus sed injection ( no cortisone)handicap placard completed Related to Right knee pain, unspecified chronicity current Rxreassess i n 3 mdose adjust if necessary Related to Type 2 diabetes mellitus without complication, without long-term current use of insulin add pat r can administer // all current meds stay the sane 2 m Related to Type 2 diabetes mellitus without complication, without long-term current use of insulin med all current continue same 6m Related to Essential hypertension agrees to same . billy nforces how taking meds improve [id number] Related to Type 2 diabetes mellitus without complication, without long-term current use of insulin continue same4m recheck Related to Essential hypertension written dietary goal s / recommendations given / reviewed with daughter susy instruction for meds and need to takre2 mcontingency possible weekly Ozempic supervised by daughter may be cost prohibitive Related to Type 2 diabetes mellitus without complication, without long-term current use of insulin reinforced. written instructionscurrent care 2 m Related to Essential hypertension current rx Related to Essen tial hypertension current rxadd Jardia nce 25 mgs dailydiflucan for yeast infection f/u 2 m Related to Type 2 diabetes mellitus without complication, without long-term current use of insulin Otitis extrnacipro d rops BIDfollow up as needed Related to Acute diffuse otitis externa of left ear reassureICEfollow up as needed R elated to Contusion of scalp, face, and neck, excluding eyes trial mirtazepine 15 mgs nightlyreassess 1 m Related to Depression, unspecified depression type current rxrecheck 1 m Related to Type 2 diabetes mellitus without complication, without long-term current use of insulin alea to take meds as prescribed ,i have strongly suggested assisted living...met with anger will see in 2 weeks. suspect unsafe current living situation ' less than solid plans in the near future. how much is just anger frustration. how much is memory Related to Type 2 diabetes mellitus without complication, without long-term current use of insulin Dietary management e ducation, guidance, and counseling Related to Body mass index (BMI) 24.0-24.9, adult PCN allergytrial ZPA Kmucinexnasal saline no decongestants Related to Acute frontal sinusitis, recurrence not specified agrees to same.ill follow up lab s Related to Type 2 diabetes mellitus without complication, without long-term current use of insulin agrees to sameill follow up on l abs Related to Essential hypertension current rx until dust settles Re lated to Type 2 diabetes mellitus without complication, without long-term current use of insulin daughter needs to re view meds with friend at moms home who helps with set upno changes current Related to Essential hypertension will refer to memory center 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 BP fine. cognition fine. mood calm plans to head home Related to Stress needs fci foll ow uplack of data encouraged to continue same Related to Type 2 diabetes mellitus without complication, without long-term current use of insulin needs to establish f anant up. leaving intermediate frame tender MD relationship Related to Essential hypertension Assessments Type Assessment Date No Information
[2022-09-15 11:33] LABS: ALT 29 U/L (14-59); AST 15 U/L (15-37); Albumin 4.4 g/dL (3.4-5.0); Alkaline Phosphatase 42 U/L (46-116); Anion Gap 9.5 mmol/L (3-11); BUN 20 mg/dL (7-18); Bilirubin, Total 0.5 mg/dL (0.2-1.0); CO2 29.5 mmol/L (21.0-32.0); CREATININE 0.8 mg/dL (0.55-1.02); Calcium 9.5 mg/dL (8.5-10.1); Chloride 102 mmol/L (98-107); Estimated GFR 77.75 (mL/min/1.73m2); Glucose 174 mg/dL (74-106); Magnesium 1.7 mg/dL (1.8-2.4); Potassium 4.6 mmol/L (3.5-5.1); Sodium 141 mmol/L (136-145); Total Protein 7.5 g/dL (6.4-8.2); Vitamin B12 287 pg/mL (193-986)
== END 2022-09-15 11:07 | disposition home or self-care (01) ==
LOC: NCHCN 11:06
PROVIDERS: PCP Nurse Practitioner Family; Visit Provider Nurse Practitioner Family
DX: I10 Essential (primary) hypertension (principal); E11.9 Type 2 diabetes mellitus without complications
CPT/HCPCS: 80053; 82607; 83735

== ENCOUNTER 2022-09-18 13:30 | Outpatient (REF) | payer MEDICARE, SELFPAY | END 2022-09-18 13:31 | disposition home or self-care (01) | LOC: NCHCN 13:30 | PROVIDERS: PCP Nurse Practitioner Family; Visit Provider Nurse Practitioner Family | DX: E11.9 Type 2 diabetes mellitus without complications (principal) | CPT/HCPCS: 83036 ==

== ENCOUNTER 2022-10-16 13:33 | Outpatient (REF) | payer MEDICARE, SELFPAY ==
[2022-10-16 15:56] LABS: Abs Immature Grans 0.01 10^3/uL (0.0-0.06); Absolute Basophil Count 0.07 10^3/uL (0.0-0.2); Absolute Lymphocyte Count 2.51 10^3/uL (1.2-3.4); Absolute Neutrophil Count 3.09 10^3/uL (1.2-6.7); Eosinophils % 8.8; HGB 13.8 g/dL (11.2-15.7); Immature Grans % 0.1; MCHC 32.9 % (32.0-36.0); MCV 94 fL (80-95); Monocytes % 7.4; Neutrophils % 45.7; Platelet Count 259 10^3/uL (130-400); RBC 4.45 10^6/uL (3.93-5.22); RDW 13.3 % (11.7-14.6); RDW-SD 46.3 fL; WBC 6.78 10^3/uL (4.4-10.8)
[2022-10-16 16:17] LABS: Iron 70 ug/dL (50-170); Total Iron Binding Capacity 248 ug/dL (250-450); Transferrin Sat 28 % (15-50)
[2022-10-16 16:29] LABS: Ferritin 38 ng/mL (8-252); Magnesium 2.2 mg/dL (1.8-2.4); TSH (W/Ref FT4) 1.14 uIU/mL (0.36-3.74)
== END 2022-10-16 13:34 | disposition home or self-care (01) ==
LOC: NCHCN 13:33
PROVIDERS: PCP Nurse Practitioner Family; Visit Provider Nurse Practitioner Family
DX: E11.9 Type 2 diabetes mellitus without complications (principal); R60.0 Localized edema; I10 Essential (primary) hypertension; F03.90 Unspecified dementia, unspecified severity, without behavioral disturbance, psychotic disturbance, mood disturbance, and anxiety; G47.62 Sleep related leg cramps; R21 Rash and other nonspecific skin eruption
CPT/HCPCS: 82728; 83540; 83550; 83735; 84443; 85025

== ENCOUNTER 2022-12-03 14:50 | Outpatient (REF) | payer MEDICARE, SELFPAY | END 2022-12-03 14:51 | disposition home or self-care (01) | LOC: NCHCN 14:50 | PROVIDERS: PCP Nurse Practitioner Family; Visit Provider Nurse Practitioner Family | DX: E11.9 Type 2 diabetes mellitus without complications (principal) | CPT/HCPCS: 83036 ==

== ENCOUNTER → 2023-01-18 13:32 | Outpatient (BNVA) | payer MEDICARE, SELFPAY | PROVIDERS: PCP Nurse Practitioner Family; Referring Provider Nurse Practitioner Family; Visit Provider Physical Therapy Assistant | DX: Z12.11 Encounter for screening for malignant neoplasm of colon (principal) ==

== ENCOUNTER 2023-01-26 07:00 | Day surgery (SDC) | payer MEDICARE, SELFPAY ==
[2023-01-26 07:28] VITALS: BP 163/64; PULSE 88; RESP 18; TEMP 36.6; O2SAT 98
[2023-01-26] MEDS: Lactated Ringers 1,000 ML 80 ML IV (07:44)
[2023-01-26 07:46] VITALS: BP 132/77; PULSE 92; RESP 16; O2SAT 97
--- NOTE | 2023-01-26 07:57 | W.ANESPRE ---
General Info Date of Service Date Performed: 01/26/23 Height: 5 ft 5 in Weight: 66.8 kg Body Mass Index (BMI): 24.5 Surgical Procedure: Operation Date: 01/26/23 08:20 Proposed Procedure Side Surgeon barb White, Meds Allergies and Home Medications Allergies Allergy/AdvReac Type Severity Reaction Status Date / Time adhesive Allergy Verified 01/26/23 07:20 Penicillins Allergy Verified 01/26/23 07:20 salmon Allergy Uncoded 01/26/23 07:20 Home Medication Medication Instructions Recorded acetaminophen 325 mg capsule 650 mg PO TID PRN 10/06/21 amlodipine 2.5 mg tablet 2.5 mg PO DAILY 10/06/21 aspirin 81 mg capsule 81 mg PO DAILY 10/06/21 atorvastatin 20 mg tablet 20 mg PO DAILY 10/06/21 cyclobenzaprine 5 mg tablet 5 mg PO QHS PRN 10/06/21 donepezil 10 mg tablet 10 mg PO QHS 10/06/21 empagliflozin 25 mg tablet 25 mg PO QAM 10/06/21 (Jardiance) lisinopril 10 mg tablet 10 mg PO DAILY 10/06/21 meloxicam 7.5 mg tablet 7.5 mg PO DAILY 10/06/21 famotidine 20 mg tablet 20 mg PO DAILY 02/15/22 magnesium oxide 348 mg magnesium PO BID 02/15/22 (600 mg) capsule dulaglutide 1.5 mg/0.5 mL 4.5 mg subcut QWEEK 12/08/22 subcutaneous pen injector (Trulicity) glipizide 10 mg tablet 20 mg PO DAILY 12/08/22 metformin 500 mg tablet 2,000 mg PO DAILY 12/08/22 bisacodyl 5 mg tablet,delayed 5 mg PO ONCE #4 tabs 01/18/23 release (Dulcolax (bisacodyl)) gabapentin 300 mg capsule 300 mg PO DAILY 01/18/23 mecobalamin (vitamin B12) 1,000 1,000 mcg PO DAILY 01/18/23 mcg chewable tablet polyethylene glycol 3350 17 17 g PO ONCE #238 grams 01/18/23 gram/dose oral powder Current Visit Medications: Current Medications Generic Name Dose Route Start Last Admin Trade Name Freq PRN Reason Stop Dose Admin Hyoscyamine Sulfate 0.125 mg 01/26/23 08:19 Hyoscyamine 0.125 Mg Sl/Oral/Chew SL 02/25/23 08:18 DIRECTED PRN Ringer's Solution 1,000 mls @ 80 mls/hr 01/26/23 06:00 01/26/23 07:44 IV 02/24/23 23:59 80 mls/hr INFUSION ALLAN Administration IV Miscellaneous Supplies 1 each 01/26/23 06:00 Iv Access IV 02/24/23 23:59 DIRECTED ALLAN Sodium Chloride 0 ml 01/26/23 06:00 Normal Saline Flush 10 Ml Syr IV 02/24/23 23:59 PRN PRN Sodium Chloride 0 ml 01/26/23 06:00 Normal Saline 10 Ml Vial IJ 02/24/23 23:59 DIRECTED PRN Sterile Water 0 ml 01/26/23 06:00 Water,Injection,Sterile 10 Ml Vial IJ 02/24/23 23:59 DIRECTED PRN PFSH Active Problems Active Problems: Problem Status Onset Code 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 Spoke with Dayna Desir. Patient signs for self. Reported she has Rash/discoloration on legs chronic, not open; Been seen by dermatology. Also reported minor fall yesterday, no issues. Tobacco Smoking/Tobacco Use Status: Current every day Tobacco Type: cigarettes Smoking cigarettes per day: 2 Alcohol Alcohol Intake: current Alcohol intake frequency: holidays/special occasions only Alcohol type: wine Substance Use Substance use: Current Sobriety Substance use type: does not use and hallucinogens Vital Signs and Lab Results Vital Signs Most Recent Vital Signs in EMR: Most Recent Vital Signs Temp Pulse Resp BP Pulse Ox 36.6 C 92 H 16 132/77 97 01/26/23 07:28 01/26/23 07:46 01/26/23 07:46 01/26/23 07:46 01/26/23 07:46 Point of Care Results Point of Care Results: Finger Stick Blood Glucose 159 01/26/23 07:27 Lab Results Blood Type / Crossmatch: No Data to Display Complete Blood Count: No Data to Display Complete Metabolic Panel: No Data to Display Liver Function Panel: No Data to Display Coagulation Panel: No Data to Display Cardiac Panel: No Data to Display Arterial Blood Gas: No Data to Display Venous Blood Gas: No Data to Display Pancreas Panel: No Data to Display Thyroid Panel: No Data to Display Infectious Disease: No Data to Display Blood Cultures: No Data to Display Toxicology Panel: No Data to Display Anesthesia Assessment and Plan Anesthesia History Personal History: No History of Anesthesia Complications and Unknown Anesthesia History Family History: No Family History of Anesthesia Complications and Family History Unknown Exercise Tolerance Exercise Tolerance: Metabolic Equivalents>4 Pertinent Negatives Pertinent Negatives: No Symptoms of GERD, No Major Cardiovascular Symptoms or Complaints and No Major Pulmonary Symptoms or Complaints Cardiac & Pulmonary Exam Cardiac Exam: Normal S1/S2 Heart Sounds Pulmonary Exam: Clear Bilateral Breath Sounds Implantable Cardiac Device Does patient have a Pacemaker or an ICD?: No Airway Exam Known Difficult Airway: No Mallampati Class: 1 Mouth Opening: Normal (> 3cm) Thyromental Distance: Greater than 3 cm Neck Range of Motion: Full ROM Neck Circumference: Normal Teeth Condition: Normal Dentition ASA Classification ASA Score: ASA 2 Emergency Case?: No NPO Status NPO Status: NPO Clears >2 hours, Solids >8 hours Anesthesia Plan Resuscitation Status: Full Code Anesthesia Technique: General Anesthesia Airway Planned: Natural Airway Monitors Used: Standard Monitors
[2023-01-26 07:59] VITALS: BMI 24.5
[2023-01-26 09:22] VITALS: BP 105/54; PULSE 80; RESP 16; TEMP 36.4; O2SAT 97
--- NOTE | 2023-01-26 10:11 | W.COLOREPORT ---
Date of service: 01/26/23 Time of Service: 10:11 Colonoscopy Report Date of procedure: 01/26/23 Pre-op diagnosis general: Father had CRC/ hx of polyps Post-op diagnosis procedure note: other Surgeon: Kayli White Anesthesia Type: General:No Airway Estimated blood loss (mL): 0 Pathology: none sent Complications: None Disposition: same day Prep: Miralax/Dulcolax Procedure Description: After informed consent was obtained the patient was taken to the procedure room and placed in a left decubitous position. Monitors were applied and a time out was done. The patients name, date of , procedure, allergies to medications and metal in their body was reviewed. The patient was then sedated. Once sedated and comfortable a rectal exam was done. External exam-large external hemorrhoids with poor rectal tone. Internal exam revealed no palpable masses. The scope was then introduced and retrofelexed. No internal hemorrhoids were identified. Upon inserting the scope patient had formed stool and a unable to pass the scope through this. The rectum was normal. The procedure was aborted. The scope was removed and the patient was woken up and taken back to Same day surgery in stable condition. The patient tolerated the procedure well and there were no immediate complications. Follow up: Patient has a family history of colon cancer and describes a personal history of polyps. We have no records of this. Patient does not remember where she had the procedure done. I will discuss with her case with her primary physician. At this time however I do not think she is a good candidate nor requires colon cancer screening
--- NOTE | 2023-01-26 10:15 | DSE_ITS ---
Date of service: 01/26/23 Time of Service: 10:15 DS: Diagnosis Discharge Diagnosis (1) Family history of colon cancer in father: Status: Acute (2) History of colon polyps: Status: Acute Asessment and Plan: The patient is seen and examined after their colonoscopy.? The patient has been able to pass gas.? They are not having abdominal pain.? They have been able to tolerate liquids and a snack.? They do not have any nausea or vomiting.? They are not having any chest pain or shortness of breath.??? They are not having any rectal bleeding. Their vital signs have been stable-see nursing notes. We discussed findings during their colonoscopy, and any biopsies that were done/polyps that were removed. The patient will be sent a letter with any biopsy results, and when to repeat the colonoscopy.-see discharge instructions. Patient was given explicit instructions to follow-up regarding colonoscopy-refer to discharge instructions.? We reviewed resumption of medications. Patient verbalized understanding and discharged in stable and satisfactory condition- See nursing notes. 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: Status: Acute (4) Mild cognitive impairment: Status: Acute (5) Dementia: (6) HTN (hypertension): (7) Arthritis: Discharge Plan Disposition Patient Disposition: Home Condition: Good Discharge Details Reason For Visit: colon scope Attending Provider: Kayli White Primary Care Provider: Margi Tate Home Meds and New Rx's Prescriptions: No Action amlodipine 2.5 mg tablet 2.5 mg PO DAILY aspirin 81 mg capsule 81 mg PO DAILY atorvastatin 20 mg tablet 20 mg PO DAILY donepezil 10 mg tablet 10 mg PO QHS Jardiance 25 mg tablet 25 mg PO QAM lisinopril 10 mg tablet 10 mg PO DAILY meloxicam 7.5 mg tablet 7.5 mg PO DAILY acetaminophen 325 mg capsule 650 mg PO TID PRN cyclobenzaprine 5 mg tablet 5 mg PO QHS PRN famotidine 20 mg tablet 20 mg PO DAILY magnesium oxide 348 mg magne- sium (600 mg) capsule PO BID bisacodyl [Dulcolax (bisacodyl)] 5 mg tablet,delayed release (DR/EC) 5 mg PO ONCE Qty: 4 0RF Rx Instructions: Take per colonoscopy instructions provided by ordering providers office polyethylene glycol 3350 17 gram/dose powder 17 g PO ONCE Qty: 238 0RF Rx Instructions: Take per colonoscopy instructions provided by ordering providers office mecobalamin (vitamin B12) 1,000 mcg tablet,chewable 1,000 mcg PO DAILY gabapentin 300 mg capsule 300 mg PO DAILY Trulicity 1.5 mg/0.5 mL pen injector 4.5 mg subcut QWEEK glipizide 10 mg tablet 20 mg PO DAILY Patient Comments: [facility] says Glipizide ER 10mg once a day metformin 500 mg tablet 2,000 mg PO DAILY Discharge Instructions Stand Alone Forms: Anesthesia Discharge Inst., Colonoscopy Post Instructions, Press Ganey (DSU) Discharge Orders Discharge Orders: Discharge Order (Routine); Ordered 01/26/23 Ordered By: Kayli White DS: Data Vitals/I&O Vitals and I&O: Vital Signs Temperature 36.4 C L 01/26/23 09:22 Pulse 80 01/26/23 09:22 Pulse Rhythm Regular 01/26/23 07:28 Respiratory Rate 16 01/26/23 09:22 Respiratory Depth Normal 01/26/23 07:28 Blood Pressure 105/54 L 01/26/23 09:22 Blood Pressure Mean 95 01/26/23 07:46 Blood Pressure Position Sitting 01/26/23 07:46 Pulse Oximetry 97 01/26/23 09:22 Oxygen Delivery Method Room Air 01/26/23 09:22 Oxygen Flow Rate 0 01/26/23 07:46 Pain Level 0 01/26/23 09:22 Intake & Output 01/25/23 01/25/23 01/26/23 11:59 23:59 11:59 Intake Total 200 / 200 Balance 200 / 200 Weight 65.045 kg 66.8 kg Intake: IV 200 / 200 Other: Emesis Description None PFSH All Active Problems (Updated 01/26/23 @ 10:17 by Kayli White DO) History of colon polyps (Acute) Family history of colon cancer in father (Acute) 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 (Acute) Mild cognitive impairment (Acute) Advanced care planning/counseling discussion (Acute) Medical History Arthritis Dementia HTN (hypertension) Pedal edema Type 2 diabetes mellitus Social History (Updated 01/19/23 @ 07:30 by LUCIA Reveles) Smoking/Tobacco Use Status: Current every day Tobacco Type: cigarettes Tobacco: How many years used: 60 Smoking risk assessment performed?: Yes Alcohol Intake: current Alcohol Intake frequency: holidays/special occasions only Alcohol type: wine Drug use: Current Sobriety Substance use type: does not use and hallucinogens Housing: assisted living facility current occupation: See HPI Current gender identity: female Do you feel safe at home: Yes Do you feel safe in your relationship?: Yes Additional Social history: [facility] resident
--- NOTE | 2023-01-26 10:18 | PDOC.DSDIS_ITS ---
Date of service: 01/26/23 Time of Service: 10:23 Discharge Plan Disposition Patient Disposition: Home Condition: Good Discharge Details Reason For Visit: colon scope Attending Provider: Kayli White Primary Care Provider: Margi Tate Home Meds and New Rx's Prescriptions: Continued amlodipine 2.5 mg tablet 2.5 mg PO DAILY aspirin 81 mg capsule 81 mg PO DAILY atorvastatin 20 mg tablet 20 mg PO DAILY donepezil 10 mg tablet 10 mg PO QHS Jardiance 25 mg tablet 25 mg PO QAM lisinopril 10 mg tablet 10 mg PO DAILY meloxicam 7.5 mg tablet 7.5 mg PO DAILY acetaminophen 325 mg capsule 650 mg PO TID PRN cyclobenzaprine 5 mg tablet 5 mg PO QHS PRN famotidine 20 mg tablet 20 mg PO DAILY magnesium oxide 348 mg magne- sium (600 mg) capsule PO BID mecobalamin (vitamin B12) 1,000 mcg tablet,chewable 1,000 mcg PO DAILY gabapentin 300 mg capsule 300 mg PO DAILY Trulicity 1.5 mg/0.5 mL pen injector 4.5 mg subcut QWEEK glipizide 10 mg tablet 20 mg PO DAILY Patient Comments: [facility] says Glipizide ER 10mg once a day metformin 500 mg tablet 2,000 mg PO DAILY Discontinued bisacodyl [Dulcolax (bisacodyl)] 5 mg tablet,delayed release (DR/EC) 5 mg PO ONCE Qty: 4 0RF Rx Instructions: Take per colonoscopy instructions provided by ordering providers office polyethylene glycol 3350 17 gram/dose powder 17 g PO ONCE Qty: 238 0RF Rx Instructions: Take per colonoscopy instructions provided by ordering providers office Discharge Instructions Additional Instructions: DSU Colonoscopy Post- Op Instructions Instructions for Everyone who is given Anesthesia: For your safety, please do the following for the next twenty-four (24) hours: *Do Not operate a motor vehicle (car, truck, motorcycle, etc.) *Do Not drink alcoholic beverages or use any recreational drugs for the first 24 hours or while taking pain medications. The medications in your body may have a reaction that can be dangerous. *Do Not make any important decisions or sign any important papers. Findings: Incomplete colon due to poor prep Follow up: -Patient states she has a history of colon cancer in her father and a history of polyps. We have no records on this. It is unclear of how reliable historian the patient states. The nurse from [place] and states she her appetite has been good. She has had no changes in her bowels. She has had no unexplained weight loss. There has been no blood in her stools. Her recent CBC shows no anemia. Patient is not a great candidate for anesthesia, and at this point I think the risks outweigh the benefits and I would not recommend any further screening colonoscopies 1. No lifting over 20 pounds or strenuous activity for the first 24 hours after your procedure. After 24 hours there are no restrictions on your activity but you may feel fatigued for a few days. 2. After you arrive home you may have a light meal and return to your normal diet as you can tolerate it without feeling sick to your stomach. 3. You may have a bloated, gaseous feeling in your belly (abdomen) after a colonoscopy. Passing gas and belching will help. Walking or lying down on your left side with your knees flexed may relieve the discomfort. Call the office at [phone] (Office) or [phone] (Hospital) right away if you notice any of the following: a.Vomiting of blood or ?coffee ground stools?. b.Rectal bleeding 1Tbsp, blood clots or continuous bleeding. c.Severe belly (abdominal) pain. d.A hard distended belly (abdomen) and an inability to pass gas. 4. Please don?t expect to have a normal BM (bowel movement) for 2-3 days after your procedure. 5. If there are questions regarding the findings of your procedure, please contact your doctor 6. If you are unable to contact your doctor with a problem, contact the hospital at [phone]. 7. Continue all your regular medications unless directed otherwise. I understand the above instructions and have no questions. Signature of Patient or Adult Escort Name of Responsible Adult Escort Signature of Nurse Date/Time Stand Alone Forms: Anesthesia Discharge Inst., Colonoscopy Post Instructions, Mary Castellanos ([facility]U) Activity:: see above Diet:: see above Discharge Orders Discharge Orders: Discharge Order (Routine); Ordered 01/26/23 Ordered By: Kayli White DS: Diagnosis Discharge Diagnosis (1) Family history of colon cancer in father: Status: Acute (2) History of colon polyps: Status: Acute Asessment and Plan: The patient is seen and examined after their colonoscopy.? The patient has been able to pass gas.? They are not having abdominal pain.? They have been able to tolerate liquids and a snack.? They do not have any nausea or vomiting.? They are not having any chest pain or shortness of breath.??? They are not having any rectal bleeding. Their vital signs have been stable-see nursing notes. We discussed findings during their colonoscopy, and any biopsies that were done/polyps that were removed. The patient will be sent a letter with any biopsy results, and when to repeat the colonoscopy.-see discharge instructions. Patient was given explicit instructions to follow-up regarding colonoscopy-refer to discharge instructions.? We reviewed resumption of medications. Patient verbalized understanding and discharged in stable and satisfactory condition- See nursing notes. 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
--- NOTE | 2023-01-26 10:22 | W.ANESPOSTOP ---
Postoperative Evaluation Date, Time and Location Date Performed: 01/26/23 Time Performed: 10:14 Patient Location: Day Surgery Unit Vital Signs Most Recent Imported Vital Signs: Most Recent Vital Signs Temp Pulse Resp BP Pulse Ox 36.4 C L 80 16 105/54 L 97 01/26/23 09:22 12 09:22 01/26/23 09:22 01/26/23 09:22 01/26/23 09:22 Pain Score Most Recent Pain Score: Most Recent Pain Score Pain Level 0 01/26/23 09:22 Assessment Mental Status: Awake (Alert & Oriented to Patient Baseline) Airway and Respiratory Function: Patent airway with normal (patient baseline) respiratory exam Cardiovascular Function: Hemodynamically Stable Hydration Status: Adequately Hydrated Nausea & Vomiting: No Nausea or Vomiting Pain: Pt. Denies Any Pain Peripheral Nerve Block: Patient did not receive a nerve block
== END 2023-01-26 07:01 | disposition home or self-care (01) ==
PROVIDERS: PCP Nurse Practitioner Family; Visit Provider Surgery
PROC: 0DJD8ZZ Inspection of Lower Intestinal Tract, Via Natural or Artificial Opening Endoscopic (ICD-10-PCS; CPT 45378; principal; 2023-01-26 08:15)
DX: Z12.11 Encounter for screening for malignant neoplasm of colon (principal); F03.90 Unspecified dementia, unspecified severity, without behavioral disturbance, psychotic disturbance, mood disturbance, and anxiety; Z86.010 Personal history of colon polyps; Z80.0 Family history of malignant neoplasm of digestive organs; I12.9 Hypertensive chronic kidney disease with stage 1 through stage 4 chronic kidney disease, or unspecified chronic kidney disease; I10 Essential (primary) hypertension; N18.1 Chronic kidney disease, stage 1
CPT/HCPCS: G0105; J2001

== ENCOUNTER → 2023-01-29 01:31 | Outpatient (CLI) | payer MEDICARE, SELFPAY ==
--- NOTE | 2023-01-29 | DI.US_ITS ---
Exam(s) MG MAMMO DIAGNOSTIC UNI US BREAST RT LIMITED EXAM: MG MAMMO DIAGNOSTIC UNI CLINICAL HISTORY: 6 MO F/U ABNL MAMMO, R92.8. COMPARISON: US US BREAST RT LIMITED from 01/29/2023 TECHNIQUE: Craniocaudal and mediolateral oblique Full Field Digital Mammography views of the right b reast with Computer Aided Diagnosis followed by Tomosynthesis and right breast ultrasound. FINDINGS: Mammography/Tomosynthesis: Masses/Architectural Distortion: Stable appearance of area of nodularity in the subareolar region of the right breast. Microcalcifications: No suspicious pleomorphic-type are seen. Skin Thickening/Nipple Retraction: None. Right breast US: Echotexture: Normal appearance of the glandular tissue. Shadowing: No suspicious foci. Cyst: Stable appearance focal ductal dilatation in the retro areolar region, measured at 12 x 4 x 10 millimeters. Solid lesions: None seen. No intraductal papilloma visible. Ductal dilation: None. IMPRESSION: 1. No evidence of malignancy is noted. 2. Unless there is more urgent need, follow-up screening mammography is recommended, due in 6 months. BI-RADS Category 2 - Benign Findings Breast Density - Category B - Scattered areas of fibroglandular density A negative radiographic report should not delay biopsy if a dominant or clinically suspicious mass is present. Up to ten percent of cancers are not identified on mammography. A negative report may reinforce clinical impression. Adenosis and dense breasts may obscure an underlying neoplasm. False positive reports average 6 to 10%. Patient will receive a letter notifying them of these results.
== END ==
PROVIDERS: PCP Nurse Practitioner Family; Visit Provider Nurse Practitioner Family
DX: R92.8 Other abnormal and inconclusive findings on diagnostic imaging of breast (principal); Z12.31 Encounter for screening mammogram for malignant neoplasm of breast
CPT/HCPCS: 76642; 77061; 77065; G0279

== ENCOUNTER 2023-07-11 09:05 | Outpatient (REF) | payer MEDICARE, SELFPAY ==
[2023-07-11 10:28] LABS: Hemoglobin A1C 6.4 % (<5.7)
== END 2023-07-11 09:06 | disposition home or self-care (01) ==
LOC: NCHCN 09:05
PROVIDERS: PCP Nurse Practitioner Family; Visit Provider Nurse Practitioner Family
DX: E53.8 Deficiency of other specified B group vitamins (principal); E83.42 Hypomagnesemia
CPT/HCPCS: 83036

== ENCOUNTER 2023-08-21 15:13 | Outpatient (REF) | payer MEDICARE, SELFPAY ==
[2023-08-21 13:16] LABS: Hemoglobin A1C 6.5 % (<5.7)
[2023-08-21 13:41] LABS: ALT 30 U/L (14-59); AST 15 U/L (15-37); Albumin 4.8 g/dL (3.4-5.0); Alkaline Phosphatase 43 U/L (46-116); Anion Gap 6.7 mmol/L (3-11); BUN 23 mg/dL (7-18); CO2 33.3 mmol/L (21.0-32.0); CREATININE 0.9 mg/dL (0.55-1.02); Calculated LDL 17 mg/dL (<100); Chloride 103 mmol/L (98-107); Cholesterol 70 mg/dL (<200); Estimated GFR 67.08 (mL/min/1.73m2); Glucose 179 mg/dL (74-106); HDL Cholesterol 40 mg/dL (40-60); Magnesium 2.4 mg/dL (1.8-2.4); Potassium 4.7 mmol/L (3.5-5.1); Sodium 143 mmol/L (136-145); Triglyceride 69 mg/dL (<150); Vitamin B12 922 pg/mL (193-986)
== END 2023-08-21 15:14 | disposition home or self-care (01) ==
LOC: NCHCN 15:13
PROVIDERS: PCP Nurse Practitioner Family; Visit Provider Nurse Practitioner Family
DX: E11.9 Type 2 diabetes mellitus without complications (principal); I10 Essential (primary) hypertension; E83.42 Hypomagnesemia; E53.8 Deficiency of other specified B group vitamins
CPT/HCPCS: 80053; 80061; 82607; 83036; 83735

== ENCOUNTER → 2023-09-20 09:50 | Emergency (ER) | payer MEDICARE, SELFPAY ==
[2023-09-20] VITALS (7 sets, daily range): BP systolic 136–174; BP diastolic 79–115; PULSE 75–83; RESP 18; TEMP 36.5; O2SAT 93–98
--- NOTE | 2023-09-20 09:55 | W.ED.GENAD ---
Discharge Plan Disposition Patient Disposition: Home Condition: Stable Discharge Details Clinical Impression: Hematoma of left thigh Primary Care Provider: Margi Tate ED Provider: David Klein Home Meds and New Rx's Prescriptions: Continued amlodipine 2.5 mg tablet 2.5 mg PO DAILY aspirin 81 mg capsule 81 mg PO DAILY atorvastatin 20 mg tablet 20 mg PO DAILY donepezil 10 mg tablet 10 mg PO QHS Jardiance 25 mg tablet 25 mg PO QAM lisinopril 10 mg tablet 10 mg PO DAILY meloxicam 7.5 mg tablet 7.5 mg PO DAILY acetaminophen 325 mg capsule 650 mg PO TID PRN cyclobenzaprine 5 mg tablet 5 mg PO QHS PRN famotidine 20 mg tablet 20 mg PO DAILY magnesium oxide 348 mg magne- sium (600 mg) capsule PO BID mecobalamin (vitamin B12) 1,000 mcg tablet,chewable 1,000 mcg PO DAILY gabapentin 300 mg capsule 300 mg PO DAILY Trulicity 1.5 mg/0.5 mL pen injector 4.5 mg subcut QWEEK glipizide 10 mg tablet 20 mg PO DAILY Patient Comments: [facility] says Glipizide ER 10mg once a day metformin 500 mg tablet 2,000 mg PO DAILY Discharge Instructions Instructions: Minor Contusion ED Additional Instructions: You were seen in the emergency department for your trip and fall this morning, there is no fracture of your femur or hip, you have a minor hematoma/contusion to your mid left thigh, you were able to ambulate with a walker. I think it is reasonable to ice the area to reduce swelling, take regular doses of Tylenol and ibuprofen, please follow-up with orthopedics in 1 to 2 weeks if no improvement in your ambulatory status. Please return to the ED for severe increase in hip pain, unilateral leg swelling, inability to move your leg. Referrals: [facility] [Provider Group] Margi Tate [Primary Care Provider] - HPI General Date/Time Provider Initiated Documentation: 09/20/23 09:55. HPI Narrative: 73 year-old female presents to ED today by EMS with a chief complaint of trip & fall outside her home this morning, L thigh pain with onset around 0600 this morning. States she has been unable to weight-bear since incident. Quality described as swollen golf ball size area to lateral mid-thigh over IT band, mild hip pain, denies knee pain, states L shoulder pain but it is ok, no radiation to headstrike, LOC, dizziness at onset, palpitations, chest pain, nausea, gross deformity. Severity is described as moderate to severe. Palliating factors include nothing specific attempted. Provoking factors include nothing specific. Patient not anticoagulated. Related Data Home Medications ?Medication ?Instructions ?Recorded ?Confirmed acetaminophen 325 mg capsule 650 mg PO TID PRN 10/06/21 01/26/23 amlodipine 2.5 mg tablet 2.5 mg PO DAILY 10/06/21 01/26/23 aspirin 81 mg capsule 81 mg PO DAILY 10/06/21 01/25/23 atorvastatin 20 mg tablet 20 mg PO DAILY 10/06/21 01/26/23 cyclobenzaprine 5 mg tablet 5 mg PO QHS PRN 10/06/21 01/26/23 donepezil 10 mg tablet 10 mg PO QHS 10/06/21 01/26/23 empagliflozin 25 mg tablet 25 mg PO QAM 10/06/21 01/25/23 (Jardiance) lisinopril 10 mg tablet 10 mg PO DAILY 10/06/21 01/26/23 meloxicam 7.5 mg tablet 7.5 mg PO DAILY 10/06/21 01/26/23 famotidine 20 mg tablet 20 mg PO DAILY 02/15/22 01/26/23 magnesium oxide 348 mg magnesium PO BID 02/15/22 01/19/23 (600 mg) capsule dulaglutide 1.5 mg/0.5 mL 4.5 mg subcut QWEEK 12/08/22 01/25/23 subcutaneous pen injector (Trulicity) glipizide 10 mg tablet 20 mg PO DAILY 12/08/22 01/25/23 metformin 500 mg tablet 2,000 mg PO DAILY 12/08/22 01/25/23 gabapentin 300 mg capsule 300 mg PO DAILY 01/18/23 01/26/23 mecobalamin (vitamin B12) 1,000 1,000 mcg PO DAILY 01/18/23 01/26/23 mcg chewable tablet Allergies Allergy/AdvReac Type Severity Reaction Status Date / Time adhesive Allergy Verified 01/26/23 07:20 Penicillins Allergy Verified 01/26/23 07:20 salmon Allergy Uncoded 01/26/23 07:20 General Stated Complaint: Fall/Non TraumaCriteria JACQUIE: 3 Review of Systems All systems reviewed & are unremarkable except as noted in HPI and below Exam Narrative Exam Narrative: GENERAL APPEARANCE: Well-nourished, non-toxic, awake and alert, atraumatic, no acute distress. SKIN: Warm, pink, dry, intact, without rashes/lesions/ulcerations. HEAD: Normocephalic, atraumatic, normal hair distribution for gender/age. EYES: Normal conjunctiva, no exudates on lids/lashes. ENT: Nares patent, no circumoral cyanosis, no facial swelling NECK: Supple, trachea midline, painless cervical ROM. LUNGS/CHEST: Non-labored respirations, normal A/P diameter, symmetrical expansion, no chest wall deformity HEART (CV/PV): No peripheral edema, no JVD. ABDOMEN: Soft, non-distended, no guarding. MSK: Normal ROM, no swelling/deformity to bilateral UEs or LEs, moving all extremities without weakness, no cyanosis, spine midline without tenderness, normal curvature. L LE: 3x3cm hematoma over L IT band- mid-shaft, no knee tenderness/crepitus, mild TTP in L hip joint, L shoulder stable with full ROM, no neck/head pain. NEURO: Mental Status AAOx4 - alert to person, place, time, events No facial droop, no forehead involvement. Motor: No focal weakness - strength 5/5 in bilateral UEs and LEs, proximal and distal, symmetric. Sensory: sensation intact to light touch globally. Gait normal: patient ambulated without ataxia into ED room. PSYCH: euthymic, cooperative, pleasant, appropriate speech Course Vital Signs Vital signs: Vital Signs Temperature 36.5 C 09/20/23 09:50 Pulse 82 09/20/23 09:50 Respiratory Rate 18 09/20/23 09:50 Blood Pressure 174/80 H 09/20/23 09:50 Pulse Oximetry 97 09/20/23 09:50 Temperature 36.5 C 09/20/23 09:50 Temperature Source Oral 09/20/23 09:50 Pulse 82 09/20/23 09:50 Respiratory Rate 18 09/20/23 09:50 Blood Pressure 174/80 H 09/20/23 09:50 Blood Pressure Position Sitting 09/20/23 09:50 Pulse Oximetry 97 09/20/23 09:50 Oxygen Delivery Method Room Air 09/20/23 09:50 Oxygen Flow Rate 0 09/20/23 09:50 Pain Level 5 09/20/23 09:50 Medical Decision Making This dictation utilizes [id number] dictation software and may contain unedited grammatical errors. 73 year-old female presents to ED today by EMS with a chief complaint of trip & fall outside her home this morning, L thigh pain with onset around 0600 this morning. States she has been unable to weight-bear since incident. Quality described as swollen golf ball size area to lateral mid-thigh over IT band, mild hip pain, denies knee pain, states L shoulder pain but it is ok, no radiation to headstrike, LOC, dizziness at onset, palpitations, chest pain, nausea, gross deformity. Severity is described as moderate to severe. Palliating factors include nothing specific attempted. Provoking factors include nothing specific. Patients' medical history: T2DM, dementia, hypertension, arthritis. Family and social history: noncontributory. Pertinent exam findings / vital signs include 3x3cm hematoma over L IT band- mid-shaft, no knee tenderness/crepitus, mild TTP in L hip joint, L shoulder stable with full ROM, no neck/head pain. Differential / pathologies of concern include fracture, sprain/strain, hematoma, tendon rupture. Diagnostic studies of: -XR L Femur - no acute fracture Interventions of: -APAP/NSAID, PT assessment for mobility needs. ED Course/Assessment/Plan: 73-year-old female had a fall at the [facility] in, has a mild hematoma in the mid IT band of her left thigh, no acute fracture to hip or femur, no knee pain or distal leg pain. Was able to stand on her own but is having trouble ambulating on her own, PT was consulted, they provided a walker for the patient to help her advise she ice and take regular dose of Tylenol and ibuprofen. Findings not consistent with fracture or neurovascular compromise. Disposition of Hematoma of Left Thigh. Patient verbalized understanding of the plan and return to ED criteria and engaged in shared decision making. Medical Records Medical records reviewed: Yes I reviewed the patient's medical records. Imaging Data Radiologic Study: Attestation: I personally reviewed and interpreted this imaging study as follows: Imaging: X-Ray Radiologist's impression: EXAM: XR FEMUR LT CLINICAL HISTORY: trip fall, L mid femur hematoma. TECHNIQUE: 2D digital imaging was performed. Three views. COMPARISON: None. FINDINGS: BONES: No acute fracture is present. No bony destructive lesion is seen. Enthesophyte at greater trochanter. JOINTS: No dislocation present. Hip joint spaces maintained. Knee is unremarkable. SOFT TISSUE: Arterial calcifications. IMPRESSION: No evidence of acute fracture, dislocation, or subluxation. 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 (Acute) Mild cognitive impairment (Acute) Advanced care planning/counseling discussion (Acute) Medical History (Updated 09/20/23 @ 13:33 by LUCIA Marino) Type 2 diabetes mellitus Dementia HTN (hypertension) Arthritis Pedal edema Surgical History (Updated 01/26/23 @ 13:34 by Laura Masters) History of colonoscopy (~01/2023) Social History (Updated 01/19/23 @ 07:30 by LUCIA Reveles) Smoking/Tobacco Use Status: Current every day Tobacco Type: cigarettes Tobacco: How many years used: 60 Smoking risk assessment performed?: Yes Alcohol Intake: current Alcohol Intake frequency: holidays/special occasions only Alcohol type: wine Drug use: Current Sobriety Substance use type: does not use and hallucinogens Housing: assisted living facility current occupation: See HPI Current gender identity: female Do you feel safe at home: Yes Do you feel safe in your relationship?: Yes Additional Social history: [facility] resident
--- NOTE | 2023-09-20 11:02 | DI.RAD_ITS ---
Exam(s) XR FEMUR LT EXAM: XR FEMUR LT CLINICAL HISTORY: trip fall, L mid femur hematoma. TECHNIQUE: 2D digital imaging was performed. Three views. COMPARISON: None. FINDINGS: BONES: No acute fracture is present. No bony destructive lesion is seen. Enthesophyte at greater tro chanter. JOINTS: No dislocation present. Hip joint spaces maintained. Knee is unremarkable. SOFT TISSUE: Arterial calcifications. IMPRESSION: No evidence of acute fracture, dislocation, or subluxation. DATA REPOSITORY: RADIATION DOSE DELIVERED:
--- NOTE | 2023-09-20 11:48 | NUR.NOTE ---
Nursing Note: Pt was able to stand but unable to take a step. Provider aware.
[2023-09-20] MEDS: Ibuprofen 400 MG TAB PO (11:53)
[2023-09-20] MEDS: Acetaminophen 325 MG TAB 650 MG PO (11:53)
--- NOTE | 2023-09-20 11:59 | NUR.NOTE ---
Nursing Note: Pt able to stand and pivot to wheelchair to go to the bathroom
--- NOTE | 2023-09-20 13:29 | IN_ITS ---
Date of service: 09/20/23 Time of Service: 13:29 PT Notes Visit Reasons: [place]/Fall Date: 09/20/23 Referring Doctor: David Klein PT Orders: PT CONSULT: Safety consult for D/C Precautions: Fall risk, standard Patient Profile/Admitting Diagnosis: 73 year-old female presents to ED by EMS with a chief complaint of trip & fall outside her home this morning, L thigh pain with golf ball sized area of swelling and TPP, sever pain with weightbearing. PT consults ordered for discharge decision making and AD needs. Social History/Home Situation: Lives at [facility], generally uses a SPC for ambulation. High fall risk frequency. Equipment Owned/DME: SPC Subjective: 10/10 pain lateral left thigh, making ambulating and mobility painful. Fearful of ambulation. Would like to use crutches of RW. Objective: General Observation: Lying in bed, pleasant, alert, cognitively appropriate. Remarkable region of soft tissue swelling L lateral thigh Mental Status: A & O x 3 ROM: Right Upper Extremity: Grossly WNL Left Upper Extremity: Grossly WNL Right Lower Extremity: Grossly WNL Left Lower Extremity: Hip flex 45 deg, pn limiting Hip rotation 5 deg, pn limiting Knee: WNL, pn in hip Ankle: WNL Strength: Right Upper Extremity: WNL Left Upper Extremity: WNL Right Lower Extremity: WNL Left Lower Extremity: Hip flex to painful to attempt, quad 4/5, HS 4/5 mild pain, seated hip abd 4/5 w pn. Bed Mobility/Transfers: Independent with supine to EOB Independent STS to RW Independent RW to STS Gait: 30 ft RW, close supervision. Short stride length. Steady and safe Balance: Static Sitting: Good Dynamic Sitting: Good Static Standing: Good with RW Dynamic Standing: Good with RW Special Tests: Mobility Limitations Standardized Measure [facility] AM-PAC 6 clicks Basic Mobility Inpatient Short Form: Raw score 22 FUNCTION: 1. Supine-Sit : I 2. Sit-Supine : I 3. Sit-Stand : I 4. Stand-Sit : I 5. Bed-Chair : I 6. Chair-Bed : I 7. Gait : RW, I 30 ft Informed Consent/Education: Patient instructed in purpose of PT consult and plan of care. Treatment: Initial evaluation [id number] Patient Education: Proper use and fitting of RW Encourage small strides Review gentle stretching of left hip to include KTC, supine IR and ER rocking, LAQ. Do not allow leg to stiffen up Icing, heating, and self massage encouraged Assessment: Patient is a 73 year old female referred to physical therapy services for safety consultation to determine discharge status, S/P fall with negative x-ray with soft tissue injury and bruising to left lateral thigh. Patient presents with functional difficulty walking and performing transfers, requiring need for RW due to her pain and soft tissue injury, but ultimately demonstrates ability to ambulate, transfer, and perform bed mobility independently so she is safe to return home with use of RW. Outpatient physical therapy encouraged if no improvement over the course of the week. Patient is assessed as low complexity based on the following: History: per EMR, lives at [facility] Examination: impairment and functional limitations as noted above Presentation: Stable Decision Making: easy Plan of Care/Treatment Plan: DISCHARGE RECOMMENDATIONS: Discharge home to [facility], with RW. Outpatient PT if symptoms do not resolve. TREATMENT CODE/TIME: 20 min direct and total, [id number] Lizzette Shaw, MPT [facility]
--- NOTE | 2023-09-20 13:33 | NUR.NOTE ---
Nursing Note: Called [place] for a ride home. Gave report to Sharmaine. Informed her she may need a recliner in her room because the bed may be to low for her to get out of with the pain in her leg.
== END | disposition home or self-care (01) ==
LOC: ER 13:33 → RED 13:45
PROVIDERS: Emergency Provider Physician Assistant; PCP Nurse Practitioner Family
DX: S70.12XA Contusion of left thigh, initial encounter (principal); M79.652 Pain in left thigh; M25.512 Pain in left shoulder; M25.552 Pain in left hip; W19.XXXA Unspecified fall, initial encounter
CPT/HCPCS: 73552; 99283

== ENCOUNTER 2023-10-17 16:06 | Outpatient (REF) | payer MEDICARE, SELFPAY ==
[2023-10-17 16:01] LABS: Hemoglobin A1C 6.4 % (<5.7)
== END 2023-10-17 16:07 | disposition home or self-care (01) ==
LOC: NCHCN 16:06
PROVIDERS: PCP Nurse Practitioner Family; Visit Provider Nurse Practitioner Family
DX: E83.42 Hypomagnesemia (principal)
CPT/HCPCS: 83036

== ENCOUNTER 2023-11-05 03:22 | Outpatient (CLI) | payer MEDICARE, SELFPAY ==
--- NOTE | 2023-11-05 | DI.CTLCSR_ITS ---
Exam(s) CT CHEST LUNG CANCER SCREEN EXAM: CT CHEST LUNG CANCER SCREEN CLINICAL HISTORY: Smoker, F17.210; screening. TECHNIQUE: Imaging Protocol: Low Dose Technique CONTRAST MATERIAL: None COMPARISON: No exams were available for comparison FINDINGS: CHEST: LUNGS: Mild increased subpleural markings noted in the lateral basal segment of the right lower lobe. No pleural effusions.. No ominous pulmonary nodules MEDIASTINUM: There is no obvious hilar nor mediastinal adenopathy. CARDIAC: Heart size is normal. There is no pericardial effusion.The diameter of the ascending thorac ic aorta is enlarged, measuring 4.1 cm. The diameter of aortic arch and descending thoracic aorta ar e upper normal. OTHER: No adrenal masses seen. OSSEOUS: No significant osseous lesions.. Fractures. IMPRESSION: 1. No significant pulmonary nodules. Mild increased subpleural markings are noted in the right lower lobe. No pleural effusions. 2. Dilated ascending thoracic aorta measuring 4.1 cm incidentally noted. 3. Lung RADS Cat 1S - Negative: No nodules and definitely benign nodules. Other: Clinically Significa nt or Potentially Clinically Significant Findings (non lung cancer) Lung-RADS 1.0 CATEGORIES: Category 0 - Prior chest CT exam(s) being located for comparison. Category 1 - Annual screening in 12 months. No nodules or definitely benign nodules. Category 2 - Annual screening in 12 months. Benign appearance. Nodules with low likelihood of becomin g active cancer. Category 3 - 6-month follow-up. Probably benign. Short-term follow-up suggested. Nodules with low lik elihood of becoming active cancer. Category 4A - 3-month follow-up and CT/PET if >8 mm in size. Suspicious finding. Findings which requi re additional testing. Category 4B - Findings which require additional testing and tissue sampling. Category 4X - Category 3 or 4 nodules with additional features or imaging findings that increases the suspicion of malignancy. Modifier S- Potentially clinically significant findings (non lung cancer) RADIATION DOSE DELIVERED: 34.48mGy.cm Total DLP DATA REPOSITORY: All CT scans at this facility are submitted to the National Radiology Data Registry (NRDR) Dose Index Registry (DIR) with the [employer] (A[employer]). RADIATION OPTIMIZATION: All CT scans at this facility use at least one of these dose optimization te chniques: automated exposure control; mA and/or kV adjustment per patient size (includes targeted exa ms where dose is matched to clinical indication); or iterative reconstruction.
--- NOTE | 2023-11-05 | DI.DEXA_ITS ---
Exam(s) XR DEXA BONE DENSITY W/WO LENKA EXAM: XR DEXA BONE DENSITY W/WO LENKA CLINICAL HISTORY: Asymptomatic postmenopausal state, Z78.0 TECHNIQUE: [employer] C densitometer analysis of left hip, lumbar spine and right forearm. La teral survey image of the thoracic and lumbar spine. COMPARISON: No exams were available for comparison FINDINGS: Lateral view of the thoracic and lumbar spine shows no evidence of compression fractures. Bone mineral density measurements of the lumbar spine correspond to a total T-score of -2.1, in the osteopenic range. Bone mineral density measurements of the left hip correspond to a total T-score of -3.2. The femora l neck T-score is -2.8, in the osteoporotic range. Theright forearm bone mineral density measurements correspond to a T-score of the distal 3rd of -4.3 , in the osteoporotic range.. IMPRESSION: Osteoporosis of the hip and forearm. Osteopenia of the spine.
== END 2023-11-05 03:42 ==
LOC: DI 03:23
PROVIDERS: PCP Nurse Practitioner Family; Visit Provider Nurse Practitioner Family
DX: F17.210 Nicotine dependence, cigarettes, uncomplicated (principal); Z78.0 Asymptomatic menopausal state; Z12.2 Encounter for screening for malignant neoplasm of respiratory organs; M81.0 Age-related osteoporosis without current pathological fracture
CPT/HCPCS: 71271; 77080

== ENCOUNTER 2023-11-21 15:05 | Outpatient (REF) | payer MEDICARE, SELFPAY ==
[2023-11-21 14:04] LABS: Hemoglobin A1C 6.7 % (<5.7)
[2023-11-26 16:05] LABS: 25-Hydroxy D Total 28 ng/mL; 25-Hydroxy D2 <4.0 ng/mL; 25-Hydroxy D3 28 ng/mL
== END 2023-11-21 15:06 | disposition home or self-care (01) ==
LOC: NCHCN 15:05
PROVIDERS: PCP Nurse Practitioner Family; Visit Provider Nurse Practitioner Family
DX: M81.0 Age-related osteoporosis without current pathological fracture (principal); E83.42 Hypomagnesemia
CPT/HCPCS: 82306; 82652; 83036

== ENCOUNTER 2024-01-02 17:17 | Outpatient (REF) | payer MEDICARE, SELFPAY ==
[2024-01-02 17:04] LABS: Hemoglobin A1C 6.3 % (<5.7)
== END 2024-01-02 17:18 | disposition home or self-care (01) ==
LOC: NCHCN 17:17
PROVIDERS: PCP Nurse Practitioner Family; Visit Provider Nurse Practitioner Family
DX: E11.9 Type 2 diabetes mellitus without complications (principal); E83.42 Hypomagnesemia; E53.8 Deficiency of other specified B group vitamins
CPT/HCPCS: 83036

== ENCOUNTER 2024-02-18 08:57 | Outpatient (REF) | payer MEDICARE, SELFPAY ==
[2024-02-18 13:49] LABS: Magnesium 1.6 mg/dL (1.8-2.4)
== END 2024-02-18 08:58 | disposition home or self-care (01) ==
LOC: NCHCN 08:57
PROVIDERS: PCP Nurse Practitioner Family; Visit Provider Nurse Practitioner Family
DX: R19.7 Diarrhea, unspecified (principal)
CPT/HCPCS: 83735

== ENCOUNTER 2024-02-27 18:21 | Outpatient (REF) | payer MEDICARE, SELFPAY ==
[2024-02-27 16:36] LABS: Magnesium 1.6 mg/dL (1.8-2.4)
== END 2024-02-27 18:22 | disposition home or self-care (01) ==
LOC: NCHCN 18:21
PROVIDERS: PCP Nurse Practitioner Family; Visit Provider Nurse Practitioner Family
DX: R19.7 Diarrhea, unspecified (principal)
CPT/HCPCS: 83735

== ENCOUNTER 2024-03-12 11:14 | Outpatient (REF) | payer MEDICARE, SELFPAY ==
[2024-03-12 12:03] LABS: Magnesium 1.6 mg/dL (1.8-2.4)
== END 2024-03-12 11:15 | disposition home or self-care (01) ==
LOC: NCHCN 11:14
PROVIDERS: PCP Nurse Practitioner Family; Visit Provider Nurse Practitioner Family
DX: E83.42 Hypomagnesemia (principal)
CPT/HCPCS: 83735

== ENCOUNTER 2024-03-14 00:50 | Outpatient (CLI) | payer MEDICARE, SELFPAY ==
--- NOTE | 2024-03-14 | DI.MAMMO_ITS ---
Exam(s) MAMMO SCREENING EXAM: MAMMO SCREENING CLINICAL HISTORY: SCREENING MAMMO Z12.31. TECHNIQUE: Bilateral full field digital CC and MLO mammographic images were obtained with 3D tomosyn thesis and utilizing computer aided detection (CAD). COMPARISON: Prior mammograms were reviewed. Prior ultrasound of January 2023 and June 2022 were reviewed. FINDINGS: There has been no significant change in the appearance and distribution of the fibroglandular tissue. Two nodular densities in the right breast are unchanged from June 2022. One of these is in the retroa reolar region measuring approximately 1.2 by 0.7 cm. The other is located further back approximately 8 cm in from the nipple and measuring approximately 5 x 4 mm. In the opposite-left breast there is a single small benign-appearing nodule which is also unchanged f June 2002. There are no new spiculated masses nor new malignant appearing microcalcification groups. There is no significant architectural distortion nor skin thickening-retraction. IMPRESSION: Stable benign-appearing findings. No radiographic evidence of malignancy. BI-RADS Category 2 - Benign Findings Breast Density - Category B - Scattered areas of fibroglandular density Breast density Category C or D implies that the patient has dense breast tissue. Dense breast tissue can make it harder to find cancer on a mammogram. Dense breast tissue is also associated with an incr eased risk of breast cancer. This information about the result of the mammogram report was provided to the patient to raise their awareness. Use this report when you speak with the patient about their risks for breast cancer, which includes their family history. At that time, you may recommend additional screening tests (Ultrasoun d or MRI) as these tests may add significant information. A negative radiographic report should not delay biopsy if a dominant or clinically suspicious mass is present. Up to ten percent of cancers are not identified on mammography. A negative report may reinforce clinical impression. Adenosis and dense breasts may obscure an underlying neoplasm. False positive reports average 6 to 10%. Patient will receive a letter notifying them of these results.
--- NOTE | 2024-03-14 08:30 | DI.US_ITS ---
APPROVED REPORT EXAM: Comprehensive 2D, Doppler, and color-flow Echocardiogram Patient Location: Out-Patient Non Categorical [employer] Teacher: Gustavo Hinojosa RDCS (AE) Other Information Technically limited study due to lung disease. Conclusion Normal left ventricular wall thickness and chamber size. Ejection fraction is 60 to 65%. Wall motio n is normal Normal right ventricular size and function Both atria are normal in size Aortic valve is sclerotic with trace regurgitation. There is no hemodynamically significant aortic s tenosis Mitral annular calcification. Trace mitral regurgitation Estimated right ventricular systolic pressure is 31 mmHg Ascending aorta measures 3.68 cm Wall motion Left Ventricle Left ventricular cavity is small. The left ventricular systolic function is normal. The left ventricu lar ejection fraction is within the normal range. There is normal left ventricular wall thickness. Th ere is normal LV segmental wall motion. The left ventricular diastolic function is normal. There is n o ventricular septal defect visualized. LVEF is 60-64%. Right Ventricle The right ventricle is normal size. Right ventricular systolic function is grossly normal. Atria The left atrium size is normal. The right atrium size is normal. The interatrial septum is intact wit h no evidence for an atrial septal defect. Aortic Valve Aortic valve appears sclerotic Number of aortic valve leaflets could not be assessed. There is no aor tic valvular stenosis. Trace aortic regurgitation. Mitral Valve Moderate mitral annular calcification. No evidence of mitral valve stenosis. Trace mitral regurgitati on. Tricuspid Valve The tricuspid valve is normal in structure. There is no tricuspid valve stenosis. Trace tricuspid reg urgitation. The RVSP is 30.6 mmHg. Pulmonic Valve The pulmonary valve is normal in structure. There is no pulmonic valvular stenosis. There is no pulmo rajeev valvular regurgitation. Great Vessels The aortic root is normal in size. The ascending aorta is moderately dilated. Aortic arch is not well visualized but appears normal in caliber. IVC is normal in size and collapses >50% with inspiration. Pericardium Trace pericardial effusion. 2D Dimensions IVSD d PLAX 0.80 cm F: 0.6-1.0 Ao Root d 2.99 cm F: 2.7 - 3.3 LVPW d PLAX 0.75 cm F: 0.6 - 1.0 Ao Asc Diam d 3.68 cm F: 2.3 - 3.1 LVID d PLAX 3.56 cm F: 3.8 - 5.2 LVDs 2.46 cm F: 2.2 - 3.5 LV EF Teichholz 59.6 % FS 30.92 % LV EDV (Teich) 53.2 mL LV ESV (Teich) 21.5 mL Stroke Vol Index (Teich) 19.42 M-Mode TAPSE 2.75 cm (M/F) >1.7 Auto EF LV EDV A4C 71.3 mL LV EDV A2C 78.2 mL LV EDV BP 75.9 mL LV ESV A4C 28.4 mL LV ESV A2C 27.8 mL LV ESV BP 28.7 mL LVEF(%) A4C 60.1 % LVEF(%) A2C 64.4 % LVEF(%) BP 62.2 % LV SV A4C 42.8 ml LV SV A2C 50.4 ml LV SV BP 47.2 ml LV CO A4C 3.4 L/min LV CO A2C 3.9 L/min LV CO BP 3.6 L/min HR A4C 79.13 BPM HR A2C 76.93 BPM LV EDV Index (BP) LA Volume LA Length A4C 3.1 cm LA Length A2C 4.4 cm LA Area A4C s 7.34 cm2 LA Area A2C s 10.20 cm2 LA Vol A4C A-L 14.58 mL LA Vol A2C A-L 20.08 mL LA Vol Biplane A-L 20.3 mL LA Vol/BSA A4C A-L LA Vol/BSA A2C A-L LA Vol/BSA BP A-L 12.4 mL/m2 LA Vol A4C MOD 14.7 mL LA Vol A2C MOD 18.3 mL LA Vol BP MOD 19.2 mL RA Volume RA Area A4C 3.9 cm2 RA ESV A4C (A-L) 6.2mL RA Vol/BSA A4C A-L RA Length A4C 2.1 cm RA ESV A4C (MOD) 5.5mL LV Diastology MV E' medial 0.073 (>0.07 m/s) MV E Vmax 1.01 (0.4-1.3 m/s) MV E/E' MED 13.92 (<14) MV A Vmax 1.35 (0.4-1.3 m/s) MV E' lateral 0.064 (>0.1 m/s) E/A Ratio 0.7 MV E/E' LAT 15.76 (<14) MV E' Average 0.068 m/s MV E/E'(average) 14.78 Aortic Valve AoV Vmax 1.65 m/s LVOT Vmax 1.07 m/s AoV Peak Grad 29.4 mmHg LVOT Peak Grad 4.6 mmHg AoV Area (Vmax) 2.09 cm2 LVOT VTI 0.236 m AoV VTI 0.395 m LVOT Mean Grad 2.6 mmHg AoV Mean Christiano. 1.23 m/s LVOT SV 75.94 mL AoV Mean Grad 6.7 mmHg LVOT Diam s 2.00 cm AoV Area (VTI) 1.92 cm2 AV Regurg Peak Gr. 10.94 mmHg Velocity Ratio 0.65 AR Decel Ritchie 2.2m/sec2 AR DT 1586 msec AR PHT 460 msec AR Vmax 3.46 m/s Mitral Valve MV DT 302 (160-240 msec) MV Vmax TIPS 1.27 m/s MV Mean Grad 2.7 (<2mmHg) MV VTI 0.335 m Pulmonary Valve PV Vmax 1.53 (0.5-1.5 m/s) RVOT Vmax 0.65 m/s PV Peak Grad 9.4 mmHg RVOT Peak Gr. 1.7 mmHg PV Mean Christiano 1.06 m/s RVOT VTI 0.149 m PV Mean Grad 5.1 mmHg RVOT Mean Gr. 0.9 mmHg Tricuspid Valve RA Pressure 3.00 mmHg TR Vmax 2.63 m/s TR Peak Grad 27.5 mmHg RVSP (TR) 30.6 mmHg
== END 2024-03-14 01:10 ==
LOC: DI 00:50
PROVIDERS: PCP Nurse Practitioner Family; Visit Provider Internal Medicine Cardiovascular Disease
DX: I35.0 Nonrheumatic aortic (valve) stenosis (principal); Z12.31 Encounter for screening mammogram for malignant neoplasm of breast
CPT/HCPCS: 77063; 77067; 93306

== ENCOUNTER 2024-03-28 19:24 | Outpatient (REF) | payer MEDICARE, SELFPAY ==
[2024-03-28 13:10] LABS: Hemoglobin A1C 6.8 % (<5.7)
== END 2024-03-28 19:25 | disposition home or self-care (01) ==
LOC: NCHCN 19:24
PROVIDERS: PCP Nurse Practitioner Family; Visit Provider Nurse Practitioner Family
DX: E11.9 Type 2 diabetes mellitus without complications (principal)
CPT/HCPCS: 83036

== ENCOUNTER 2024-04-28 16:45 | Outpatient (REF) | payer MEDICARE, SELFPAY ==
[2024-04-28 17:58] LABS: Magnesium 2.2 mg/dL (1.8-2.4)
== END 2024-04-28 16:46 | disposition home or self-care (01) ==
LOC: NCHCN 16:45
PROVIDERS: PCP Nurse Practitioner Family; Visit Provider Nurse Practitioner Family
DX: E83.42 Hypomagnesemia (principal); E53.8 Deficiency of other specified B group vitamins
CPT/HCPCS: 83735

== ENCOUNTER 2024-06-10 11:57 | Emergency (ER) | payer MEDICARE, SELFPAY ==
[2024-06-10] VITALS (25 sets, daily range): BP systolic 122–215; BP diastolic 61–84; PULSE 86–100; RESP 14–22; TEMP 37.1; O2SAT 91–100
--- NOTE | 2024-06-10 11:45 | RT.EKG_ITS ---
APPROVED REPORT Exam: Resting ECG Reason for Exam: sob Patient Location: E HR:91 bpm ECG Measurements Heart Rate 91 AXIS FL 160 P 159 QRSd 90 QRS 255 QT 391 T 117 QTc 481 Conclusion Sinus rhythm, rate 91 No interval abnormalities No STEMI Q waves II, III, aVF, no priors available for comparison
--- NOTE | 2024-06-10 12:00 | DI.RAD_ITS ---
Exam(s) XR CHEST 2V PA LATERAL EXAM: XR CHEST 2V PA LATERAL CLINICAL HISTORY: Wheezing, SOB TECHNIQUE: 2D digital imaging was performed of the chest. Two images were obtained. PA and lateral views were obtained. COMPARISON: CT CT CHEST LUNG CANCER SCREEN from 11/05/2023 FINDINGS: MEDIASTINUM: Normal. HEART: Normal. PULMONARY VASCULATURE: Normal. There is tortuosity of the thoracic aorta. LUNGS: Clear. PLEURAL SPACE: No pleural effusion or pneumothorax. BONE:Within normal limits for the patient's age. OTHER FINDINGS:Normal. IMPRESSION: No acute pulmonary findings. DATA REPOSITORY: RADIATION DOSE DELIVERED:
[2024-06-10 12:23] LABS: Abs Immature Grans 0.02 10^3/uL (0.0-0.06); Absolute Basophil Count 0.06 10^3/uL (0.0-0.2); Absolute Eosinophil Count 0.46 10^3/uL (0.0-0.7); Absolute Lymphocyte Count 2.23 10^3/uL (1.2-3.4); Absolute Monocyte Count 0.83 10^3/uL (0.1-0.8); Absolute Neutrophil Count 5.01 10^3/uL (1.2-6.7); Basophils % 0.7 %; Eosinophils % 5.3 %; HGB 12.6 g/dL (11.2-15.7); Immature Grans % 0.2 %; Lymphocytes % 25.9 %; MCH 30.1 pg (27.0-33.0); MCHC 32.3 % (32.0-36.0); MCV 93 fL (80-95); MPV 10.1 fL (8.0-11.0); Monocytes % 9.6 %; Neutrophils % 58.3 %; Platelet Count 237 10^3/uL (130-400); RBC 4.18 10^6/uL (3.93-5.22); RDW 12.9 % (11.7-14.6); WBC 8.61 10^3/uL (4.4-10.8)
--- NOTE | 2024-06-10 12:30 | W.ED.GENAD ---
Discharge Plan Disposition Patient Disposition: Home Condition: Stable Discharge Details Clinical Impression: COPD with acute exacerbation Primary Care Provider: Margi Tate ED Provider: Janet Yanes Home Meds and New Rx's Prescriptions: New albuterol sulfate 90 mcg/actuation HFA aerosol inhaler 2 puff inhalation Q6H PRNQty: 6.7 0RF azithromycin 250 mg tablet 250 mg PO DAILY 4 Days Qty: 4 0RF Rx Instructions: start on day 2 of therapy (06/10/2024) prednisone 20 mg tablet 40 mg PO DAILY 4 Days Qty: 8 0RF No Action amlodipine 2.5 mg tablet 2.5 mg PO DAILY aspirin 81 mg capsule 81 mg PO DAILY atorvastatin 20 mg tablet 20 mg PO DAILY donepezil 10 mg tablet 10 mg PO QHS Jardiance 25 mg tablet 25 mg PO QAM lisinopril 10 mg tablet 10 mg PO DAILY meloxicam 7.5 mg tablet 7.5 mg PO DAILY acetaminophen 325 mg capsule 650 mg PO Q8H PRN cyclobenzaprine 5 mg tablet 5 mg PO Q12H PRN famotidine 20 mg tablet 20 mg PO DAILY mecobalamin (vitamin B12) 1,000 mcg tablet,chewable 1,000 mcg PO DAILY gabapentin 300 mg capsule 600 mg PO TID Trulicity 1.5 mg/0.5 mL pen injector 4.5 mg subcut QWEEK glipizide 10 mg tablet 10 mg PO DAILY metformin 500 mg tablet 2,000 mg PO DAILY cholecalciferol (vitamin D3) [Vitamin D3] 50 mcg (2,000 unit) capsule 50 mcg PO DAILY mirtazapine 15 mg tablet 15 mg PO DAILY Ozempic 2 mg/dose (8 mg/3 mL) pen injector 2 mg subcut QWEEK Rexulti 2 mg tablet 2 mg PO QHS Rx Instructions: administer on days 5 through 7 for starting therapy magnesium Tablet 1 tab PO BID Discharge Instructions Instructions: COPD Exacerbation, Adult ED Additional Instructions: You were seen in the emergency department today for evaluation of shortness of breath that is likely due to an exacerbation of COPD or chronic emphysema. In our department you received nebulizer treatments for your wheezing, had a chest x-ray that did not show sign of pneumonia and had reassuring laboratory studies. It is safe for you to go back to your home, but I have given you a prescription for a inhaler to be used for ongoing wheezing or shortness of breath. Additionally, you need to take 4 more days of antibiotics and steroids. You will start these medications tomorrow, 06/10/2024, and take both prednisone and azithromycin once daily. Please take all of this medication until it is gone, even if you start to feel better. Please follow-up with your primary care provider in the next few days to discuss this visit and any symptoms that change, worsen, or persist. Thank you for allowing us to be part of your care. HPI General Mode of arrival: EMS. Date/Time Provider Initiated Documentation: 06/10/24 12:14. Limitations to Documentation: no limitations. Information obtained by: patient, EMS and old records reviewed. HPI Narrative: This is a 74-year-old female patient with a history of diabetes, CKD, hypertension, dementia, and COPD brought in by EMS for shortness of breath. The patient has had increased shortness of breath for the last few days, as well as a nonproductive cough. She has not had any fevers or chills. Her appetite remains unaffected, and she has not experienced any episodes of nausea or vomiting. She also reports no chest pain. She has a known diagnosis of emphysema. She does not use an inhaler or nebulizer at home. She was seen at [facility] and was noted to have an SpO2 on room air of 90%, was initially on a small amount of oxygen by nasal cannula. They noted an old infarct on her EKG but no acute ischemia. EMS noted bilateral wheezing, provided her duo nebulizer with significant improvement in her work of breathing and were able to wean her to room air. Related Data Home Medications ?Medication ?Instructions ?Recorded ?Confirmed acetaminophen 325 mg capsule 650 mg PO Q8H PRN 10/06/21 06/10/24 amlodipine 2.5 mg tablet 2.5 mg PO DAILY 10/06/21 06/10/24 aspirin 81 mg capsule 81 mg PO DAILY 10/06/21 06/10/24 atorvastatin 20 mg tablet 20 mg PO DAILY 10/06/21 06/10/24 cyclobenzaprine 5 mg tablet 5 mg PO Q12H PRN 10/06/21 06/10/24 donepezil 10 mg tablet 10 mg PO QHS 10/06/21 06/10/24 empagliflozin 25 mg tablet 25 mg PO QAM 10/06/21 06/10/24 (Jardiance) lisinopril 10 mg tablet 10 mg PO DAILY 10/06/21 06/10/24 meloxicam 7.5 mg tablet 7.5 mg PO DAILY 10/06/21 06/10/24 famotidine 20 mg tablet 20 mg PO DAILY 02/15/22 06/10/24 dulaglutide 1.5 mg/0.5 mL 4.5 mg subcut QWEEK 12/08/22 06/10/24 subcutaneous pen injector (Trulicity) glipizide 10 mg tablet 10 mg PO DAILY 12/08/22 06/10/24 metformin 500 mg tablet 2,000 mg PO DAILY 12/08/22 06/10/24 gabapentin 300 mg capsule 600 mg PO TID 01/18/23 06/10/24 mecobalamin (vitamin B12) 1,000 1,000 mcg PO DAILY 01/18/23 06/10/24 mcg chewable tablet albuterol sulfate 90 mcg/actuation 2 puff inhalation Q6H PRN #6.7 06/10/24 aerosol inhaler grams azithromycin 250 mg tablet 250 mg PO DAILY 4 days #4 tabs 06/10/24 brexpiprazole 2 mg tablet (Rexulti) 2 mg PO QHS 06/10/24 06/10/24 cholecalciferol (vitamin D3) 50 50 mcg PO DAILY 06/10/24 06/10/24 mcg (2,000 unit) capsule (Vitamin D3) magnesium 1 tab PO BID 06/10/24 06/10/24 mirtazapine 15 mg tablet 15 mg PO DAILY 06/10/24 06/10/24 prednisone 20 mg tablet 40 mg (2 x 20 mg) PO DAILY 4 days 06/10/24 #8 tabs semaglutide 2 mg/dose (8 mg/3 mL) 2 mg subcut QWEEK 06/10/24 06/10/24 subcutaneous pen injector (Ozempic) Previous Rx's ?Medication ?Instructions ?Recorded albuterol sulfate 90 mcg/actuation 2 puff inhalation Q6H PRN #6.7 06/10/24 aerosol inhaler grams azithromycin 250 mg tablet 250 mg PO DAILY 4 days #4 tabs 06/10/24 prednisone 20 mg tablet 40 mg (2 x 20 mg) PO DAILY 4 days 06/10/24 #8 tabs Allergies Allergy/AdvReac Type Severity Reaction Status Date / Time adhesive Allergy Unknown Unknown Verified 06/10/24 12:06 Penicillins Allergy Unknown Unknown Verified 06/10/24 12:06 salmon Allergy Unknown Unknown Uncoded 06/10/24 12:06 General Stated Complaint: SOB JACQUIE: 3 Exam Narrative Exam Narrative: Gen: awake and alert, in no apparent distress. Appears well nourished. HEENT: PERRL, EOMs full and without nystagmus. External ears and nose normal, mucous membranes moist. Neck: Supple, full range of motion, no observable masses Lungs: No increased work of breathing, lung sounds reveal diffuse expiratory wheezing throughout CV: Heart with regular rate and rhythm, no murmurs auscultated. Strong and symmetrical radial pulses. Abdomen: Soft, nondistended, non-tender to palpation. No rigidity, rebound tenderness, or guarding. MSK: No joint swelling, no redness. Full ROM without limitation, no external traumatic findings. No peripheral edema, no unilateral calf swelling or tenderness Skin: No rashes or lesions to visualized skin. Normal color, warm, and dry. Neuro: Cranial nerves II-XII intact and symmetrical bilaterally. 5/5 strength in all muscle groups x4 extremities. No sensory deficits. Ambulates with steady gait. Psych: Appropriate for situation. Course Vital Signs Vital signs: Vital Signs Pulse 100 H 06/10/24 11:57 Respiratory Rate 20 06/10/24 11:57 Blood Pressure 215/70 H 06/10/24 11:57 Pulse Oximetry 91 L 06/10/24 11:57 Temperature 37.1 C 06/10/24 12:07 Temperature Source Temporal Artery Scan 06/10/24 12:07 Pulse 92 H 06/10/24 12:10 Pulse 92 H 06/10/24 12:10 Respiratory Rate 22 06/10/24 12:10 Respiratory Effort Short of Breath, Incrsd Work of Breathing 06/10/24 12:14 Respiratory Depth Normal 06/10/24 12:14 Respiratory Pattern Normal 06/10/24 12:14 Blood Pressure 215/70 H 06/10/24 12:07 Blood Pressure Mean 116 06/10/24 12:01 Blood Pressure Position Sitting 06/10/24 12:07 Pulse Oximetry 92 06/10/24 12:10 Oxygen Delivery Method Room Air 06/10/24 12:07 Oxygen Flow Rate 0 06/10/24 12:07 Pain Level 0 06/10/24 12:07 Lab/Test Results Lab/Test Results: Laboratory Tests Range/Units 06/10/24 12:11 WBC (4.4-10.8) 10^3/uL 8.61 RBC (3.93-5.22) 10^6/uL 4.18 Hgb (11.2-15.7) g/dL 12.6 Hct (36.0-46.0) % 39.0 MCV (80-95) fL 93 MCH (27.0-33.0) pg 30.1 MCHC (32.0-36.0) % 32.3 RDW (11.7-14.6) % 12.9 Plt Count (130-400) 10^3/uL 237 MPV (8.0-11.0) fL 10.1 Immature Gran % % 0.2 Neutrophils % % 58.3 Lymphocytes % % 25.9 Monocytes % % 9.6 Eosinophils % % 5.3 Basophils % % 0.7 Nucleated RBC % (0.0-0.3) % 0.0 Absolute Neutrophils (1.2-6.7) 10^3/uL 5.01 Absolute Lymphocytes (1.2-3.4) 10^3/uL 2.23 Absolute Monocytes (0.1-0.8) 10^3/uL 0.83 H Absolute Eosinophils (0.0-0.7) 10^3/uL 0.46 Absolute Basophils (0.0-0.2) 10^3/uL 0.06 Medical Decision Making This is a 74-year-old female patient presenting for evaluation of shortness of breath and wheezing. EMS reports a history of emphysema, this is not documented on the patient's chart and the patient is not sure if she has been told she has this condition, though she does have some cognitive impairment at baseline. My differential includes but is not limited to reactive airway disease exacerbation, viral upper respiratory infection was considered that the patient tested negative for COVID and influenza in the primary care environment today. Considered bronchitis, pneumonia, pulmonary edema or pleural effusion. The patient has no evidence of DVT on physical examination, is not tachycardic or hypoxic on room air at this time, and her wheezing would be less consistent with pulmonary embolism. We will obtain a EKG, chest x-ray, and labs to include CBC, CMP, magnesium, troponin, and I will provide the patient with a duo nebulizer treatment and a dose of Solu-Medrol. ED Course: - Administered initial breathing treatment, with significant improvement in her wheezing and work of breathing. She remained with appropriate oxygen saturations on room air - Chest x-ray reviewed by myself, showing no abnormalities such as pneumonia, pulmonary edema or pleural effusion. - I independently interpreted the laboratory studies, which show no significant leukocytosis, anemia, or thrombocytopenia. The chemistry panel is without evidence of electrolyte abnormality, kidney dysfunction, or liver injury. Troponin was negative and without delta change on 1 hour recheck, making acute ischemia highly unlikely, especially in this patient who had a nonischemic EKG on my review. Final Assessment: Patient's shortness of breath and wheezing suggest an exacerbation of emphysema. The patient responded well to breathing treatment and intravenous steroids, received her first dose of azithromycin and at this time is appropriate for outpatient management. I will prescribe the remainder of her course of steroids and antibiotics, and provided the patient with a prescription for an albuterol inhaler for ongoing wheezing or shortness of breath Clinical Impression: - Exacerbation of emphysema Disposition: - Discharge Patient Education: Instructed patient to inform the medical team if symptoms do not improve. MDM Components Evaluation: - Number of Differential Diagnoses or Management Options: Exacerbation of emphysema, pneumonia - Amount and Complexity of Data Reviewed: Chest x-ray - Risk of Complication and Morbidity or Mortality: Moderate risk due to respiratory condition and potential for pneumonia. Janet Yanes MD Patient consented to the use of ALLEGRA for this patient encounter. Medical Records Medical records reviewed: Yes I reviewed the patient's medical records. Lab Data Lab results reviewed: Yes I reviewed the patient's lab results. 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 (Acute) Mild cognitive impairment (Acute) Advanced care planning/counseling discussion (Acute) Medical History (Updated 06/10/24 @ 14:13 by Janet Yanes MD) Type 2 diabetes mellitus Dementia HTN (hypertension) Arthritis Pedal edema Surgical History (Updated 01/26/23 @ 13:34 by Laura Masters) History of colonoscopy (~01/2023) Social History (Updated 01/19/23 @ 07:30 by LUCIA Reveles) Smoking/Tobacco Use Status: Current every day Tobacco Type: cigarettes Tobacco: How many years used: 60 Smoking risk assessment performed?: Yes Alcohol Intake: current Alcohol Intake frequency: holidays/special occasions only Alcohol type: wine Drug use: Current Sobriety Substance use type: does not use and hallucinogens Housing: assisted living facility current occupation: See HPI Current gender identity: female Do you feel safe at home: Yes Do you feel safe in your relationship?: Yes Additional Social history: [facility] resident
[2024-06-10 12:47] LABS: ALT 22 U/L (14-59); AST 16 U/L (15-37); Albumin 4.3 g/dL (3.4-5.0); Alkaline Phosphatase 63 U/L (46-116); Anion Gap 8.1 mmol/L (3-11); BUN 16 mg/dL (7-18); Bilirubin, Total 0.6 mg/dL (0.2-1.0); CO2 26.9 mmol/L (21.0-32.0); Calcium 9.7 mg/dL (8.5-10.1); Chloride 102 mmol/L (98-107); Estimated GFR 58.75 (mL/min/1.73m2); Glucose 330 mg/dL (74-106); Magnesium 1.9 mg/dL (1.8-2.4); Potassium 3.9 mmol/L (3.5-5.1); Sodium 137 mmol/L (136-145); Total Protein 7.9 g/dL (6.4-8.2); Troponin I 25 ng/L (<or=51)
[2024-06-10] MEDS: methylPREDNISolone SUCC 125 MG VIAL IVP (12:56)
[2024-06-10] MEDS: Albuterol/Ipratropium 3 ML UPD VIAL UPD (13:11)
[2024-06-10 13:38] LABS: Troponin I 21 ng/L (<or=51)
[2024-06-10] MEDS: Azithromycin 250 MG TAB 500 MG PO (14:27)
== END 2024-06-10 14:37 | disposition home or self-care (01) ==
PROVIDERS: Emergency Provider Emergency Medicine; PCP Nurse Practitioner Family
DX: J44.1 Chronic obstructive pulmonary disease with (acute) exacerbation (principal); E11.22 Type 2 diabetes mellitus with diabetic chronic kidney disease; I12.9 Hypertensive chronic kidney disease with stage 1 through stage 4 chronic kidney disease, or unspecified chronic kidney disease; N18.1 Chronic kidney disease, stage 1; F03.90 Unspecified dementia, unspecified severity, without behavioral disturbance, psychotic disturbance, mood disturbance, and anxiety; Z79.82 Long term (current) use of aspirin; Z79.84 Long term (current) use of oral hypoglycemic drugs; Z79.85 Long-term (current) use of injectable non-insulin antidiabetic drugs
CPT/HCPCS: 80053; 93005; 94640; 96374; 99285; 71046; 83735; 84484; 85025; 93010; 99284; J2919; J7620

== ENCOUNTER 2024-07-11 01:09 | Outpatient (CLI) | payer MEDICARE, SELFPAY ==
[2024-07-11] MEDS: Inhaler, Assist Device 1 EACH MC (09:35)
[2024-07-11] MEDS: Levalbuterol HFA 15 GM INH 4 PUFF IH (09:35)
--- NOTE | 2024-07-16 19:47 | W.PFT ---
Date of service: 07/11/24 Time of Service: 07:59 Pulmonary Function Test Result Indications: Dyspnea Interpretation Spirometry: There is moderate airflow limitation. There is a significant bronchodilator response. Lung Volumes: There is air trapping Diffusion Capacity: Normal diffusion Airway Pressure: Normal airways resistance Impression Moderate airflow limitation with a bronchodilator response, air trapping and normal diffusion Clinical Correlation therefore is recommended.
== END 2024-07-11 01:10 | disposition home or self-care (01) ==
LOC: RT 01:09
PROVIDERS: PCP Nurse Practitioner Family; Visit Provider Student in an Organized Health Care Education/Training Program
DX: R06.02 Shortness of breath (principal)
CPT/HCPCS: 94060; 94726; 94729

== ENCOUNTER 2024-07-29 11:48 | Outpatient (REF) | payer MEDICARE, SELFPAY ==
[2024-07-29 12:13] LABS: Hemoglobin A1C 9.3 % (<5.7)
== END 2024-07-29 11:49 | disposition home or self-care (01) ==
LOC: NCHCN 11:48
PROVIDERS: PCP Nurse Practitioner Family; Visit Provider Nurse Practitioner Family
DX: E83.42 Hypomagnesemia (principal)
CPT/HCPCS: 83036

== ENCOUNTER 2024-11-05 01:42 | Outpatient (CLI) | payer MEDICARE, SELFPAY ==
--- NOTE | 2024-11-05 | DI.CTLCSR_ITS ---
Exam(s) CT CHEST LUNG CANCER SCREEN EXAM: CT CHEST LUNG CANCER SCREEN CLINICAL HISTORY: PERS HX NICOTINE DEPENDENCE Z87.891 FORMER SMOKER SCREENING TECHNIQUE: Imaging Protocol: Axial computed tomography images with coronal and sagittal reformatted images were created and reviewed. Lung Computer Aided Detection (CAD) was utilized. COMPARISON: CT CT CHEST LUNG CANCER SCREEN from 11/05/2023 CR XR CHEST 2V PA LATERAL from 06/10/2024 FINDINGS: Tracheobronchial tree: Patent where visualized. No bronchiectasis. Pulmonary parenchyma: No consolidation or dominant measurable mass. No architectural distortion. Lung Nodules: There are no suspicious pulmonary nodules. Mediastinum and Marielos: No dominant adenopathy or fluid collection. The esophagus is unremarkable. Thyroid gland: Unremarkable. Lymph nodes: Unremarkable. Pleura: No effusion or pneumothorax. Heart: The heart is not dilated. There is 3 vessel coronary artery calcification present. No pericardial effusion. Aorta: The ascending thoracic aorta measures 4.0 x 3.7 cm.Atherosclerotic calcification is present. Upper abdomen: Unremarkable. Soft Tissues: Unremarkable. Bones: Since the prior chest x-ray from 06/10/2024, there has developed a burst fracture of the T12 vertebral body. There is loss of approximately 50 percent of the height of the vertebral body. There is retropulsion into the spinal canal. The AP diameter is 1.5 cm. The bones are osteopenic. Age-appropriate degenerative changes are present throughout the thoracic spine. IMPRESSION: 1. There are no suspicious pulmonary nodules. 2. Stable 4.0 cm ascending thoracic aorta. 3. Since 06/10/2024, there has developed a T12 burst fracture with retropulsion. There is mild narrowing of the central spinal canal. There is loss of 50 percent of the height of the vertebral body. Lung RADS Cat 1S - Negative: No nodules and definitely benign nodules. Other: Clinically Significant or Potentially Clinically Significant Findings (non lung cancer) Lung-RADS 1.0 CATEGORIES: Category 0 - Prior chest CT exam(s) being located for comparison. Category 1 - Annual screening in 12 months. No nodules or definitely benign nodules. Category 2 - Annual screening in 12 months. Benign appearance. Nodules with low likelihood of becoming active cancer. Category 3 - 6-month follow-up. Probably benign. Short-term follow-up suggested. Nodules with low likelihood of becoming active cancer. Category 4A - 3-month follow-up and CT/PET if >8 mm in size. Suspicious finding. Findings which require additional testing. Category 4B - Findings which require additional testing and tissue sampling. Suspicious finding. Category 4X - Category 3 or 4 nodules with additional features or imaging findings that increases the suspicion of malignancy. Modifier S- Potentially clinically significant finding. (Non lung cancer) Unexpected findings RADIATION DOSE DELIVERED: 28.68mGy.cm Total DLP 28.68mGy.cmTotal DLP DATA REPOSITORY: All CT scans at this facility are submitted to the National Radiology Data Registry (NRDR) Dose Index Registry (DIR) with the [employer] (A[employer]). RADIATION OPTIMIZATION: All CT scans at this facility use at least one of these dose optimization techniques: automated exposure control; mA and/or kV adjustment per patient size (includes targeted exams where dose is matched to clinical indication); or iterative reconstruction.
== END 2024-11-05 02:02 ==
PROVIDERS: PCP Nurse Practitioner Family; Visit Provider Nurse Practitioner Family
DX: Z12.2 Encounter for screening for malignant neoplasm of respiratory organs (principal); Z87.891 Personal history of nicotine dependence
CPT/HCPCS: 71271

== ENCOUNTER 2024-11-15 12:06 | Outpatient (REF) | payer MEDICARE, SELFPAY ==
[2024-11-15 13:55] LABS: ALT 26 U/L (14-59); AST 16 U/L (15-37); Albumin 4.3 g/dL (3.4-5.0); Alkaline Phosphatase 87 U/L (46-116); Anion Gap 11.2 mmol/L (3-11); BUN 28 mg/dL (7-18); Bilirubin, Total 0.4 mg/dL (0.2-1.0); CO2 27.8 mmol/L (21.0-32.0); Calcium 9.1 mg/dL (8.5-10.1); Chloride 103 mmol/L (98-107); Estimated GFR 52.40 (mL/min/1.73m2); Glucose 278 mg/dL (74-106); Potassium 5.0 mmol/L (3.5-5.1); Sodium 142 mmol/L (136-145); Total Protein 7.5 g/dL (6.4-8.2)
== END 2024-11-15 12:07 | disposition home or self-care (01) ==
LOC: LBN 12:06
PROVIDERS: PCP Nurse Practitioner Family; Visit Provider Registered Nurse
DX: F02.B11 Dementia in other diseases classified elsewhere, moderate, with agitation (principal); F51.8 Other sleep disorders not due to a substance or known physiological condition; Z51.81 Encounter for therapeutic drug level monitoring
CPT/HCPCS: 80053

== ENCOUNTER 2024-12-01 21:24 | Outpatient (REF) | payer MEDICARE, SELFPAY ==
[2024-12-01 22:18] LABS: ALT 27 U/L (14-59); AST 16 U/L (15-37); Albumin 4.7 g/dL (3.4-5.0); Alkaline Phosphatase 74 U/L (46-116); Anion Gap 11.0 mmol/L (3-11); BUN 20 mg/dL (7-18); Bilirubin, Total 0.6 mg/dL (0.2-1.0); CO2 29.0 mmol/L (21.0-32.0); Calcium 9.7 mg/dL (8.5-10.1); Calculated LDL 10 mg/dL (<100); Chloride 102 mmol/L (98-107); Cholesterol 79 mg/dL (<200); Estimated GFR 66.67 (mL/min/1.73m2); Glucose 164 mg/dL (74-106); HDL Cholesterol 33 mg/dL (>or=50); Magnesium 2.1 mg/dL (1.8-2.4); Potassium 4.3 mmol/L (3.5-5.1); Sodium 142 mmol/L (136-145); TSH (W/Ref FT4) 1.43 uIU/mL (0.36-3.74); Total Protein 8.0 g/dL (6.4-8.2); Triglyceride 180 mg/dL (<150); Vitamin D 25 Total 31 ng/mL (30-100)
[2024-12-05 14:33] LABS: Procollagen I IntactN-Terminal 62 mcg/L
== END 2024-12-01 21:25 | disposition home or self-care (01) ==
LOC: NCHCN 21:24
PROVIDERS: PCP Nurse Practitioner Family; Visit Provider Nurse Practitioner Family
DX: I10 Essential (primary) hypertension (principal); M81.0 Age-related osteoporosis without current pathological fracture
CPT/HCPCS: 80053; 80061; 82306; 83519; 83735; 84443

== ENCOUNTER 2024-12-10 09:57 | Outpatient (RCR) | payer MEDICARE, SELFPAY ==
--- NOTE | 2024-12-16 10:23 | W.HOLTRPT ---
Date of service: 12/16/24 Time of Service: 10:23 Holter Monitor Report Referring Provider:: Margi Tate Indications:: Irregular heartbeat Holter Monitor Note: This is a 48-hour Holter monitor. Predominant rhythm is sinus with an average heart rate of 85. Minimum was 53, maximum 134 There were occasional to frequent premature ventricular contractions There were occasional to frequent premature atrial contractions There was no atrial fibrillation, no high-grade AV block, no pauses greater than 3 seconds No symptoms were reported
== END 2024-12-19 23:59 | disposition home or self-care (01) ==
LOC: CARDOPNVT 09:57
PROVIDERS: PCP Nurse Practitioner Family; Visit Provider Nurse Practitioner Family
DX: I49.9 Cardiac arrhythmia, unspecified (principal)
CPT/HCPCS: 93227; 93225; 93226

== ENCOUNTER 2024-12-25 00:27 | Outpatient (RCR) | payer MEDICARE, SELFPAY ==
[2024-12-25] MEDS: Romosozumab-AQQG 210 MG/2.34 ML SYRINGE SC (13:14)
== END 2025-01-18 23:59 | disposition home or self-care (01) ==
LOC: INF 00:27
PROVIDERS: PCP Nurse Practitioner Family; Visit Provider Family Medicine
DX: M81.0 Age-related osteoporosis without current pathological fracture (principal)
CPT/HCPCS: 96372; J3111

== ENCOUNTER → 2025-01-21 01:06 | Outpatient (CLI) | payer MEDICARE, SELFPAY ==
--- NOTE | 2025-01-21 | DI.DEXA_ITS ---
Exam(s) XR DEXA BONE DENSITY W/WO LENKA EXAM: XR DEXA BONE DENSITY W/WO LENKA CLINICAL HISTORY: POSTMENOPAUSAL OSTEOPOROSIS, M81.0, AGE RELATED OSTEO W/O FRACTURE TECHNIQUE: COMPARISON: CR XR DEXA BONE DENSITY W/WO LENKA from 11/05/2023 FINDINGS: Lateral Spine Image: Unremarkable. No compression deformities identified. There is a new T12 compression fracture. This was not present on the prior DEXA scan from 11/05/2023. This was seen on this CT scan of the chest from 11/05/2024. Left hip: Total T-Score: -3.6. This compares to -3.2 on the prior examination. Total Z-Score: -1.8 T- and Z-scores: The findings are consistent with osteoporosis. Lumbar Spine: Total T-Score: -1.9. This compares to -2.1 on the prior examination. Total Z-Score: 0.6 T- and Z-scores: The findings overall are consistent with osteopenia. There is osteoporosis in the L4 vertebral body with a T-score of -2.5. There is osteoporosis in the left forearm with a total T-score of -5.2 and Z- score of -2.7. IMPRESSION: Findings of osteoporosis are seen in the left hip, lumbar spine and left forearm.
== END ==
PROVIDERS: PCP Nurse Practitioner Family; Visit Provider Internal Medicine
DX: M81.0 Age-related osteoporosis without current pathological fracture (principal)
CPT/HCPCS: 77080

== ENCOUNTER 2025-01-22 01:08 | Outpatient (RCR) | payer MEDICARE, SELFPAY ==
[2025-01-22] MEDS: Romosozumab-AQQG 210 MG/2.34 ML SYRINGE SC (13:16)
== END 2025-02-18 23:59 | disposition home or self-care (01) ==
LOC: INF 01:08
PROVIDERS: PCP Nurse Practitioner Family; Visit Provider Family Medicine
DX: M81.0 Age-related osteoporosis without current pathological fracture (principal)
CPT/HCPCS: 96372; J3111

== ENCOUNTER 2025-01-29 15:51 | Outpatient (REF) | payer MEDICARE, SELFPAY ==
[2025-01-29 15:21] LABS: Hemoglobin A1C 7.1 % (<5.7)
== END 2025-01-29 15:52 | disposition home or self-care (01) ==
LOC: NCHCN 15:51
PROVIDERS: PCP Nurse Practitioner Family; Visit Provider Nurse Practitioner Family
DX: E11.9 Type 2 diabetes mellitus without complications (principal)
CPT/HCPCS: 83036